=== PATIENT | male | born 1945 | race Caucasian/White ===

== ENCOUNTER 2020-05-14 06:57 | Outpatient (CLI) | payer MEDICARE, SELFPAY ==
[2020-05-14 07:09] LABS: Basophils Absolute Auto 0.05 K/mm3 (0.00-0.10); Eosinophils Absolute Auto 0.18 K/mm3 (0.02-0.50); Eosinophils Percent Auto 3.5 % (1.0-6.0); Hematocrit 49.7 % (37.0-46.0); Hemoglobin 16.7 g/dL (12.4-15.3); Immature Granulocyte Absolute 0.01 K/mm3 (0.00-0.00); Immature Granulocyte Percent A 0.2 % (0.0-0.0); Lymphocytes Absolute Auto 1.68 K/mm3 (1.10-4.50); Lymphocytes Percent Auto 32.6 % (18.0-42.0); Mean Corpuscular HGB Conc 33.6 g/dL (32.0-36.0); Mean Corpuscular Hemoglobin 32.2 pg (27.0-31.0); Mean Corpuscular Volume 95.8 fL (78.0-102.0); Mean Platelet Volume 9.4 fl (8.7-11.0); Monocytes Absolute Auto 0.54 K/mm3 (0.10-0.90); Monocytes Percent Auto 10.5 % (2.0-11.0); Neutrophils Absolute Auto 2.7 K/mm3 (1.7-7.2); Neutrophils Percent Auto 52.2 % (50.0-70.0); Platelet Count Result 132 K/mm3 (150-420); Red Blood Count 5.19 M/mm3 (4.70-6.10); Red Cell Distribution Width 13.4 % (11.6-14.4); White Blood Count 5.2 K/mm3 (4.8-10.8)
[2020-05-14 07:10] LABS: Appearance Urine Clear (Clear); Bilirubin Urine Negative (Negative); Color Urine Yellow (Yellow); Glucose Urine UA Negative (Negative); Ketones Urine Negative (Negative); Leukocyte Esterase Ur Negative (Negative); Nitrate Urine Negative (Negative); Protein Urine Trace (Negative)
[2020-05-14 07:15] LABS: Add Urine Microscopic? YES; Bacteria Urine None seen /hpf; Blood Urine Trace-Intact (Negative); RBC Urine 0-2 /hpf (0-2); WBC Urine 0-3 /hpf (0-3)
[2020-05-14 07:26] LABS: Hemoglobin A1C 5.3 % (<5.7)
[2020-05-14 07:40] LABS: BNP 283 pg/mL (0-100); Creatinine Urine 93.34 mg/dL (40-278)
[2020-05-14 07:41] LABS: Microalbumin Urine Random 145.7 mg/L
[2020-05-14 08:31] LABS: Alanine Aminotransferase 21 U/L (16-63); Albumin Level 3.9 g/dL (3.4-5.0); Alkaline Phosphatase 80 U/L (46-116); Anion Gap 12.3 mmol/L (7-16); Aspartate Amino Transferase 17 U/L (15-37); Bilirubin,Total 1.1 mg/dL (0.00-1.00); Blood Urea Nitrogen 19 mg/dL (7-18); Calcium 8.9 mg/dL (8.5-10.1); Carbon Dioxide 29 mmol/L (21-32); Chloride 103 mmol/L (98-108); Cholesterol 153 mg/dL (0-200); Creatine Kinase 71 U/L (39-308); Estimated Glomerular Filt Rate 58; Free T3 2.93 pg/mL (2.18-3.98); Free T4 Free Thyroxine 1.06 ng/dL (0.76-1.46); Glucose 98 mg/dL (70-99); HDL Direct 65 mg/dL (40-60); LDL Cholesterol Calculated 81 mg/dL (<130); Osmolality Calculated 292 mOsm/kg (285-295); Potassium 4.3 mmol/L (3.5-5.1); Sodium 140 mmol/L (136-145); Thyroid Stimulating Hormone 1.79 uIU/mL (0.36-3.74); Total Protein 6.8 g/dL (6.4-8.2); Triglycerides 37 mg/dL (0-150)
== END 2020-05-14 06:58 | disposition home or self-care (01) ==
LOC: CHSLAB 07:00
PROVIDERS: PCP Internal Medicine; Visit Provider Internal Medicine
DX: E78.2 Mixed hyperlipidemia (principal); I50.1 Left ventricular failure, unspecified; R73.01 Impaired fasting glucose; I10 Essential (primary) hypertension; E03.4 Atrophy of thyroid (acquired); D69.6 Thrombocytopenia, unspecified
CPT/HCPCS: 36415; 80053; 80061; 81001; 82043; 82550; 83036; 83880; 84439; 84443; 84481; 85025

== ENCOUNTER 2020-07-04 08:08 | Outpatient (CLI) | payer MEDICARE, SELFPAY ==
--- NOTE | ~2020-07-04 | US_ITS ---
EXAMINATION: US aorta [facility] DATE: 07/04/2020 12:37 CDT INDICATION: Abdominal aortic aneurysm screening TECHNIQUE: Grayscale, color Doppler, and pulsed Doppler images of the aorta and common iliac arteries were obtained. COMPARISON: Hypertension. High cholesterol. Smoking history. History of thoracic aortic aneurysm. FINDINGS: The proximal aorta measures 2.3 cm greatest sagittal dimension. The mid aorta measures 2.2 cm greates t sagittal dimension. The distal aorta measures 2.3 cm greatest sagittal dimension. The right common internal iliac artery measures 1.4 cm. The left common iliac artery measures 1.4 cm. IMPRESSION: 1. Atherosclerosis of the aorta without evidence for aneurysm. Reviewed, dictated and finalized at location A.
== END 2020-07-04 08:09 | disposition home or self-care (01) ==
LOC: CHSIMG 08:09
PROVIDERS: PCP Internal Medicine; Visit Provider Internal Medicine Cardiovascular Disease
DX: Z13.6 Encounter for screening for cardiovascular disorders (principal)
CPT/HCPCS: 76706

== ENCOUNTER 2020-07-13 18:28 | Emergency (ER) | payer MEDICARE, SELFPAY ==
--- NOTE | ~2020-07-13 | XR_ITS ---
EXAMINATION: XR chest 1V portable DATE: 07/13/2020 19:02 INDICATION: Chest pain. TECHNIQUE: A single frontal view of the chest was obtained. COMPARISON: Chest 2 views 09/13/2017, chest CT 10/30/2019 FINDINGS: There is no pneumonia, pleural effusion, or pneumothorax. Cardiomegaly is noted. There are changes of heart valve replacements. There is a closure device at atrial appendage. IMPRESSION: 1. Cardiomegaly. Reviewed, dictated and finalized at location A. IMPRESSION: 1. Cardiomegaly.
--- NOTE | ~2020-07-13 | CT_ITS ---
EXAMINATION: Geoff Negrete MD DATE: 07/13/2020 20:27 INDICATION: Chest and back pain. TECHNIQUE: Computed tomographic angiography (CTA) of the chest, abdomen, and pelvis was performed wit hout and with 100 mL Omnipaque-350 intravenous contrast. Automated exposure control and iterative rec onstruction technique were employed. The dose-length product was 2078.32 mGy-cm. Maximum intensity pr ojection 3D-reconstructions of the aorta and other arteries were constructed by the technologist on a separate workstation. COMPARISON: Chest CT 10/30/2019, CT abdomen and pelvis 08/06/2009 FINDINGS: CHEST CTA: There is mild atelectasis bilaterally. There are trace pleural effusions. Cardiomegaly is noted. Ther e are coronary artery calcifications. There are changes of aortic valve, mitral valve, and tricuspid valve replacements. There is a 5.9 cm aneurysm of ascending aorta. There is a dissection of ascending and descending aorta. There is a moderate volume of hemopericardium. There is leakage of contrast in to the pericardial effusion. The dissection is fenestrated, and there is contrast opacification of th e false and true lumens. The dissection extends into the brachiocephalic trunk. There is moderate tho racic spondylosis. ABDOMEN AND PELVIS CTA: The liver, gallbladder, spleen, pancreas, and adrenal glands are normal. There is cortical thinning o f the kidneys. There is a 6 mm cyst in left kidney. There are no dilated loops of bowel. The appendix is normal. There are no pathologically enlarged lymph nodes. There is no free intraperitoneal fluid. There are changes of left inguinal hernia repair. There are supraumbilical ventral hernias containin g fat with fat stranding, consistent with inflammation versus scarring. The aortic dissection continu es through the abdominal aorta to the right common iliac artery. There is severe lumbar spondylosis. IMPRESSION: 1. 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 I called this result to Dr. Negrete at 20:39. Reviewed, dictated and finalized at location A. IMPRESSION: 1. 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 I called this result to Dr. Negrete at 20:39.
--- NOTE | 2020-07-13 18:29 | ECG_ITS ---
Measurements Intervals [place] Rate: 70 P: [place]: 0 QRS: -60 QRSD: 155 T: 107 QT: 438 QTc: 473 Interpretive Statements ATRIAL FIBRILLATION FREQUENT VENTRICULAR PREMATURE COMPLEXES LEFT AXIS DEVIATION LEFT BUNDLE BRANCH BLOCK BASELINE ARTIFACT- I, II, III, AVL, V4-V6 ABNORMAL ECG Electronically Signed On 07-15-2020 8:18:11 CDT by Wayne Lozada D.O.
[2020-07-13 18:32] VITALS: BP 150/116; PULSE 69; RESP 20; O2SAT 97
[2020-07-13 18:45] VITALS: BP 139/85; PULSE 67; RESP 20; O2SAT 95
[2020-07-13] MEDS: MORPHINE SULFATE (*CRX) 2 MG/ML INJ IV PUSH ×2 (18:49→20:56)
[2020-07-13] MEDS: ONDANSETRON INJ 4 MG/2 ML VIAL IV PUSH (18:49)
--- NOTE | 2020-07-13 18:51 | ED.CHESTPAIN ---
HPI - Chest Pain General Chief Complaint: Chest Pain Stated Complaint: chest pain Time Seen by Provider: 07/13/20 18:29 Source: patient Mode of arrival: ambulatory Limitations: no limitations History of Present Illness HPI narrative: 74-year-old man with history of aortic valve disease, AST, and atrial appendage procedure, atrial fibrillation coronary artery disease comes in today complaining of chest pain and his upper chest which is like squeezing and pain going across the shoulders and in his upper back. Patient states that it made him feel nauseous, sweaty and short of breath. It has been going on for the few days but got much worse this evening. He has had no vomiting, syncope, abdominal pain. he states that his last echocardiogram (within the last 2 weeks) showed that he had a thoracic aneurysm measuring 4.6 cm. MD complaint: chest pain Pertinent past history: coronary artery disease, prior MD, [employer] and known aortic aneurysm Onset (ago): day(s) (2) Timing of current episode: episodic Prior episodes: No Onset: during rest Pain location: substernal Pain radiation: back, neck, left shoulder and right shoulder Severity: severe Quality: heaviness and sharp Relieving factors: nothing Exacerbating factors: nothing Associated symptoms: nausea, diaphoresis, dyspnea and palpitations Treatment prior to arrival: none Risk Factors Coronary artery disease risk factors: smoking history, hyperlipidemia and hypertension Thoracic aortic dissection risk factors: history of thoracic aortic aneurysm and longstanding hypertension Pulmonary embolism risk factors: history of deep vein thrombosis Related Data Home Medications Medication Instructions Recorded Confirmed apixaban [Eliquis] 5 mg PO BID 07/13/20 07/13/20 aspirin [Aspirin Low Dose] 81 mg PO DAILY 07/13/20 07/13/20 calcium carb-mag oxide-vit D3 1 tablet PO DAILY 07/13/20 07/13/20 [Calcium Magnesium + D] carvedilol 6.25 mg PO BID 07/13/20 07/13/20 furosemide 20 mg PO DAILY 07/13/20 07/13/20 losartan 50 mg PO BID 07/13/20 07/13/20 potassium chloride 10 meq PO TID 07/13/20 07/13/20 pravastatin 20 mg PO DAILY 07/13/20 07/13/20 Allergies Allergy/AdvReac Type Severity Reaction Status Date / Time NADIEN Inhibitors Allergy Unknown Unknown Verified 07/13/20 18:40 No Known Allergies Verified 09/16/09 20:03 Review of Systems Constitutional: Constitutional: Denies chills and Denies fever(s) Eyes: Eyes: Denies change in vision and Denies photophobia ENT: Denies dysphagia, Denies nasal congestion and Denies sore throat Cardiovascular: Cardiovascular: Reports chest pain, Denies rapid heart rate and Reports radiating jaw, neck or arm pain Respiratory: Respiratory: Denies cough, Reports dyspnea and Denies wheezing Gastrointestinal: Gastrointestinal: Denies abdominal pain, Reports nausea and Denies vomiting Genitourinary: Genitourinary: Denies dysuria and Denies urinary frequency Musculoskeletal: Musculoskeletal: Reports back pain, Denies arthralgias and Denies joint swelling Integumentary/Breasts: Skin/Breast: Denies pruritus, Denies erythema and Denies rash Neurologic: Denies vertigo, Denies dizziness and Denies syncope Psychiatric: Psychiatric: Denies anxiety and Denies depression Endocrine: Endocrine: Denies excessive sweating and Denies polyuria Hematologic/Lymphatic: Hematologic/Lymphatic: Reports easy bruising (on AC and ASA) Allergic/Immunologic: Allergic/Immunologic: Denies lip swelling and Denies tongue swelling PMFSH Past Medical History Medical History ASD (atrial septal defect) Atrial fibrillation DVT (deep venous thrombosis) Dyslipidemia Hypertension Obstructive sleep apnea Systolic congestive heart failure Surgical History Surgical History Aortic valve replaced Presence of stent in coronary artery Family History Family History (Updated
[2020-07-13 18:52] LABS: Hematocrit 46.7 % (37.0-46.0); Hemoglobin 15.3 g/dL (12.4-15.3); Mean Corpuscular HGB Conc 32.8 g/dL (32.0-36.0); Mean Corpuscular Hemoglobin 31.4 pg (27.0-31.0); Mean Corpuscular Volume 95.7 fL (78.0-102.0); Platelet Count Result 115 K/mm3 (150-420); Red Blood Count 4.88 M/mm3 (4.70-6.10); Red Cell Distribution Width 13.1 % (11.6-14.4); White Blood Count 6.5 K/mm3 (4.8-10.8)
[2020-07-13 19:04] LABS: INR 1.2; Partial Thromboplastin Time 30.5 SEC (22.3-31.6); Prothrombin Time 12.4 Seconds (9.64-11.0)
[2020-07-13 19:06] LABS: Albumin Level 3.4 g/dL (3.4-5.0); Alkaline Phosphatase 77 U/L (46-116); Anion Gap 7 mmol/L (8-16); Aspartate Amino Transferase 11 U/L (15-37); Bilirubin,Total 1.8 mg/dL (0.00-1.00); Blood Urea Nitrogen 23 mg/dL (7-18); Calcium 8.4 mg/dL (8.5-10.1); Carbon Dioxide 27 mmol/L (21-32); Chloride 104 mmol/L (98-108); Estimated CRCL calculation 55 ml/min; Estimated Glomerular Filt Rate 52; Glucose 120 mg/dL (70-99); Osmolality Calculated 290 mOsm/kg (285-295); Potassium 4.1 mmol/L (3.5-5.1); Sodium 138 mmol/L (136-145); Total Protein 6.4 g/dL (6.4-8.2)
[2020-07-13 19:07] LABS: Alanine Aminotransferase < 6 U/L (16-63)
[2020-07-13 19:11] LABS: Troponin I 0.06 ng/mL (0.00-0.056)
[2020-07-13 19:12] LABS: Band Neutrophils Percent 0 % (0-6); D Dimer 2.12 mg/L (0.19-0.50); Lymphocytes Absolute Manual 0.71 K/mm3 (1.1-4.5); Lymphocytes Percent Manual 11 % (18-44); Neutrophils Absolute Manual 4.48 K/mm3 (1.3-6.7); Neutrophils Percent Manual 69 % (46-73); Total Cells Counted 100
[2020-07-13 19:13] LABS: Basophils Percent Manual 0 % (0-1); Eosinophils Absolute Manual 0.26 K/mm3 (0.02-0.5); Eosinophils Percent Manual 4 % (1-6); Monocytes Absolute Manual 1.04 K/mm3 (0.1-0.90); Monocytes Percent Manual 16 % (3-9); Platelet Estimate Decreased (Adequate)
[2020-07-13 19:14] LABS: BNP 321 pg/mL (0-100)
[2020-07-13 19:45] VITALS: PULSE 65
--- NOTE | 2020-07-13 19:54 | PC.NURSE ---
[address] after being called twice
[2020-07-13] MEDS: SODIUM CHLORIDE 0.9% IV 1,000 ML 999 ML IV CONT (20:56)
[2020-07-13] MEDS: LABETALOL HCL INJ 100 MG/20 ML VIAL 10 MG IV PUSH (21:05)
[2020-07-13 21:14] LABS: Add Urine Microscopic? YES; Appearance Urine Clear (Clear); Bilirubin Urine Negative (Negative); Blood Urine Negative (Negative); Color Urine Yellow (Yellow); Glucose Urine UA Negative (Negative); Ketones Urine Negative (Negative); Leukocyte Esterase Ur Negative LEU/UL (Negative); Nitrate Urine Negative (Negative); Protein Urine Trace (Negative)
[2020-07-13 21:18] LABS: RBC Urine None seen /hpf (0-2); Squamous Epithelial Cell Urine None seen /hpf (Few); WBC Urine None seen /hpf (0-3)
[2020-07-13 21:19] LABS: Bacteria Urine None seen /hpf; Mucus Urine None seen /lpf
--- NOTE | 2020-07-13 21:38 | PC.NURSE ---
Arch called 2054 arch arrived 2109 pt left with arch 2124 report given to Vimal WHITEHEAD at [facility] at 2107
== END 2020-07-13 21:25 | disposition short-term general hospital (02) ==
PROVIDERS: Emergency Provider Emergency Medicine; PCP Internal Medicine
DX: I71.1 Thoracic aortic aneurysm, ruptured (principal); R06.02 Shortness of breath; I48.91 Unspecified atrial fibrillation; Z86.718 Personal history of other venous thrombosis and embolism; E78.5 Hyperlipidemia, unspecified; I10 Essential (primary) hypertension; Z87.891 Personal history of nicotine dependence
CPT/HCPCS: 36415; 71045; 71275; 74174; 80053; 81001; 83880; 84484; 85025; 85055; 85380; 85610; 85730; 93005; 96361; 96374; 96375; 96376; 99285; J2270; J2405; J7030; Q9965

== ENCOUNTER 2020-07-27 09:54 | Emergency (ER) | payer MEDICARE, SELFPAY ==
--- NOTE | ~2020-07-27 | CT_ITS ---
EXAMINATION: CT abdomen pelvis w con EXAM DATE: 07/27/2020 11:13 INDICATION: Groin hematoma. TECHNIQUE: Spiral CT of the abdomen and pelvis was performed following intravenous injection of 100 m L Omnipaque 350. Axial, coronal and sagittal images were reviewed. The dose-length product (DLP) fo r this examination was 1004.82 mGy-cm. The exposure was tailored according to patient size (auto mA exposure control), and iterative reconstruction (ASIR) was used as additional dose reduction techniqu e. Comparison is made to prior examination from 07/13/2020. FINDINGS: Again there is aortic dissection, determined to be type A on a CT angiogram 07/13/2020. Ther e is no rupture. There is lobulated fluid collection in the right groin likely post catheterization m easuring about 8 cm. There is no enhancement within this to suggest pseudoaneurysm or active extravas ation. Aortic root is aneurysmal, the ascending aorta was not imaged. The liver, spleen, adrenal glands and pancreas are unremarkable. Gallbladder is unremarkable. No bi liary obstruction. Portal and splenic veins are patent. Kidneys enhance symmetrically. There is no hydronephrosis. The prostate is unremarkable. Small amount of free pelvic fluid. The bladder is u nremarkable. There is no retroperitoneal or pelvic lymphadenopathy. There is moderate scattered ar teriosclerotic disease. The appendix is not positively visualized. There is no pericecal inflammatory change to suggest appe ndicitis. Surgical changes from prior left inguinal hernia repair. There is a small supraumbilical he rnia, left of midline approximately 5 cm above the umbilicus with a nonobstructed small bowel loop in side. There is expected amount of colonic stool. No free intraperitoneal gas. There is cardiomeg serafin. Moderate bilateral pleural effusions, developed compared to 07/13, with adjacent segmental atele ctasis. Sternotomy wires with multiple cardiac valve replacements. There are no osteoblastic or oste olytic lesions identified. Mild to moderate lumbar dextroscoliosis. IMPRESSION: 1. Large right groin seroma without evidence of active extravasation or pseudoaneurysm. 2. Supraumbilical hernia, now containing nonobstructed small bowel. 3. Persistent Type A dissection without rupture. 4. Development of moderate bilateral pleural effusions, adjacent segmental atelectasis. Reviewed, dictated and finalized at location A. IMPRESSION: 1. Large right groin seroma without evidence of active extravasation or pseudo aneurysm. 2. Supraumbilical hernia, now containing nonobstructed small bowel. 3. Persistent Type A dissection without rupture. 4. Development of moderate bilateral pleural effusions, adjacent segmental ate lectasis.
[2020-07-27 10:00] VITALS: BP 183/120; PULSE 95; RESP 22; TEMP 36.1; O2SAT 95
--- NOTE | 2020-07-27 10:01 | ECG_ITS ---
Measurements Intervals [place] Rate: 98 P: [place]: 0 QRS: -9 QRSD: 164 T: 146 QT: 399 QTc: 511 Interpretive Statements ATRIAL FIBRILLATION FREQUENT VENTRICULAR PREMATURE COMPLEXES LEFT BUNDLE BRANCH BLOCK BASELINE WANDER- I, III, AVL, AVF, V1-V6 ABNORMAL ECG Electronically Signed On 07-29-2020 7:00:25 CDT by Wayne Lozada D.O.
[2020-07-27 10:23] LABS: Hematocrit 37.3 % (37.0-46.0); Hemoglobin 12.2 g/dL (12.4-15.3); Mean Corpuscular HGB Conc 32.7 g/dL (32.0-36.0); Mean Corpuscular Volume 94.9 fL (78.0-102.0); Mean Platelet Volume 8.9 fl (8.7-11.0); Platelet Count Result 323 K/mm3 (150-420); Red Blood Count 3.93 M/mm3 (4.70-6.10); Red Cell Distribution Width 14.4 % (11.6-14.4)
[2020-07-27 10:36] LABS: INR 1.1; Partial Thromboplastin Time 27.5 SEC (22.3-31.6); Prothrombin Time 11.8 Seconds (9.64-11.0)
[2020-07-27 10:38] LABS: BNP 971 pg/mL (0-100)
[2020-07-27 10:42] LABS: Alanine Aminotransferase 38 U/L (16-63); Albumin Level 2.5 g/dL (3.4-5.0); Alkaline Phosphatase 129 U/L (46-116); Anion Gap 6 mmol/L (8-16); Aspartate Amino Transferase 17 U/L (15-37); Bilirubin,Total 0.8 mg/dL (0.00-1.00); Blood Urea Nitrogen 12 mg/dL (7-18); Calcium 8.6 mg/dL (8.5-10.1); Carbon Dioxide 28 mmol/L (21-32); Chloride 100 mmol/L (98-108); Estimated Glomerular Filt Rate > 60; Glucose 123 mg/dL (70-99); Osmolality Calculated 278 mOsm/kg (285-295); Potassium 3.6 mmol/L (3.5-5.1); Sodium 134 mmol/L (136-145); Total Protein 6.7 g/dL (6.4-8.2)
[2020-07-27 10:42] LABS: CRP 7.4 mg/dL (0.0-0.9)
[2020-07-27 10:43] LABS: Troponin I 0.09 ng/mL (0.00-0.056)
[2020-07-27 10:45] VITALS: BP 157/96; PULSE 90; RESP 20; O2SAT 97
[2020-07-27 10:45] LABS: Lactic Acid Reflex 1.9 mmol/L (0.4-2.0)
--- NOTE | 2020-07-27 11:21 | PC.NURSE ---
Report given to CHARLEY Mcdowell
--- NOTE | 2020-07-27 11:43 | PC.NURSE ---
CALL PLACED TO DR LAL [phone] FOR BED PLACEMENT AT [facility]
[2020-07-27 11:48] VITALS: BP 151/94; PULSE 104; RESP 16; O2SAT 99
--- NOTE | 2020-07-27 11:50 | ED.GENADULT ---
HPI - General Adult General Chief complaint: Unspecified Stated complaint: lump above right leg Source: patient Mode of arrival: ambulatory Limitations: no limitations History of Present Illness HPI narrative: this is a 74-year-old gentleman presents with some right groin swelling, had any firm area on the right groin area with a recent surgical repair of a ruptured aortic aneurysm in the middle of June, currently stable blood pressure 151/94, is afebrile. The patient's symptoms started earlier this morning and they were concerned and presented to the emergency department. They call the surgical hot line at [facility] where he previously had surgery performed in [place] and was advised to come to a nearest emergency department. Currently the patient denies any chest pain, there is no shortness of breath not eliciting any pain or discomfort in the right groin area although there is a firm mass approximately the size of a baseball is mildly tender with palpation. Patient has a significant past surgical history with coronary artery disease status post PCI, has a history of CHF with an ejection fraction of 35 to 40% tele with history of mitral annuloplasty and tricuspid annuloplasty back in 2015. Onset (ago): hour(s) Location: right ( right groin area) Radiation: non-radiation Associated symptoms: denies other symptoms Related Data Home Medications Medication Instructions Recorded Confirmed aspirin [Aspirin Low Dose] 81 mg PO DAILY 07/13/20 07/27/20 calcium carb-mag oxide-vit D3 1 tablet PO DAILY 07/13/20 07/27/20 [Calcium Magnesium + D] furosemide 20 mg PO DAILY 07/13/20 07/27/20 losartan 25 mg PO DAILY 07/13/20 07/27/20 potassium chloride 10 meq PO TID 07/13/20 07/27/20 pravastatin 20 mg PO DAILY 07/13/20 07/27/20 amoxicillin-pot clavulanate 1 tablet PO BID 07/27/20 07/27/20 metoprolol succinate 50 mg PO DAILY 07/27/20 07/27/20 Allergies Allergy/AdvReac Type Severity Reaction Status Date / Time NADINE Inhibitors Allergy Unknown Unknown Verified 07/13/20 18:40 No Known Allergies Verified 09/16/09 20:03 Review of Systems Review of Systems: All systems reviewed & are unremarkable except as noted in HPI and below PMFSH Past Medical History Medical History ASD (atrial septal defect) Atrial fibrillation DVT (deep venous thrombosis) Dyslipidemia Hypertension Obstructive sleep apnea Systolic congestive heart failure Surgical History Surgical History Aortic valve replaced Presence of stent in coronary artery Family History Family History Father Hypertension Mother Patient's mother is in good health Social History Social History Smoking status: Former smoker Substance use: never Gender identity (if verbalized by the patient): Male Exam Const: General: no acute distress and alert Orientation/consciousness: patient oriented x3 HENMT: Head: normal to inspection Eyes: Conjunctivae: conjunctivae normal Pupils: Equal, round and reactive pupils present EOM: EOMs intact bilaterally Neck: Neck: normal visual inspection, no lymphadenopathy and no meningeal signs Chest: Chest palpation & inspection: normal inspection of the chest Other: Midline surgical scar Resp: Effort & Inspection: normal respiratory effort Auscultation: clear to auscultation bilaterally Cardio: Rate: tachycardic Rhythm: regular rhythm GI: GI Palp: Yes Tenderness to palpation present (GI) Percussion: Yes normal to percussion : Testes: Testes normal Skin: General skin exam: normal color Rashes: no rashes Other: firm mildly tender mass right groin area approximately 6 to 7 cm in diameter Neuro: General: patient oriented x3, moves all extremities and no meningeal signs Extrem: General: spring
[2020-07-27 13:01] VITALS: BP 143/97; PULSE 99; O2SAT 100
--- NOTE | 2020-07-27 13:01 | PC.NURSE ---
ADDITIONAL CALL PLACED TO [facility], NO BED AVAILABLE YET. PATIENT UPDATED OF WAIT TIMES. CONDITION STABLE AT THIS TIME.
[2020-07-27 14:05] VITALS: PULSE 90; O2SAT 99
== END 2020-07-27 14:45 | disposition short-term general hospital (02) ==
PROVIDERS: Emergency Provider Emergency Medicine; PCP Internal Medicine
DX: I72.8 Aneurysm of other specified arteries (principal); Z98.890 Other specified postprocedural states; I48.91 Unspecified atrial fibrillation; Z86.718 Personal history of other venous thrombosis and embolism; E78.5 Hyperlipidemia, unspecified; I10 Essential (primary) hypertension
CPT/HCPCS: 36415; 74177; 80053; 83605; 83880; 84484; 85027; 85610; 85730; 86140; 93005; 99285; Q9965

== ENCOUNTER 2020-09-11 07:04 | Outpatient (CLI) | payer MEDICARE, SELFPAY ==
[2020-09-11 07:28] LABS: Basophils Absolute Auto 0.03 K/mm3 (0.00-0.10); Basophils Percent Auto 0.6 % (0.0-1.0); Eosinophils Absolute Auto 0.16 K/mm3 (0.02-0.50); Eosinophils Percent Auto 3.5 % (1.0-6.0); Hematocrit 41.6 % (37.0-46.0); Immature Granulocyte Absolute 0.01 K/mm3 (0.00-0.00); Immature Granulocyte Percent A 0.2 % (0.0-0.0); Lymphocytes Absolute Auto 1.33 K/mm3 (1.10-4.50); Lymphocytes Percent Auto 28.8 % (18.0-42.0); Mean Corpuscular HGB Conc 31.3 g/dL (32.0-36.0); Mean Corpuscular Hemoglobin 29.5 pg (27.0-31.0); Mean Corpuscular Volume 94.3 fL (78.0-102.0); Mean Platelet Volume 9.3 fl (8.7-11.0); Monocytes Absolute Auto 0.63 K/mm3 (0.10-0.90); Monocytes Percent Auto 13.6 % (2.0-11.0); Neutrophils Absolute Auto 2.5 K/mm3 (1.7-7.2); Neutrophils Percent Auto 53.3 % (50.0-70.0); Platelet Count Result 186 K/mm3 (150-420); Red Blood Count 4.41 M/mm3 (4.70-6.10); Red Cell Distribution Width 14.3 % (11.6-14.4); White Blood Count 4.6 K/mm3 (4.8-10.8)
[2020-09-11 07:49] LABS: BNP 1170 pg/mL (0-100)
[2020-09-11 08:26] LABS: Alanine Aminotransferase 19 U/L (16-63); Albumin Level 3.6 g/dL (3.4-5.0); Alkaline Phosphatase 111 U/L (46-116); Anion Gap 8 mmol/L (8-16); Aspartate Amino Transferase 13 U/L (15-37); Bilirubin,Total 0.9 mg/dL (0.00-1.00); Blood Urea Nitrogen 19 mg/dL (7-18); Calcium 9.1 mg/dL (8.5-10.1); Carbon Dioxide 27 mmol/L (21-32); Chloride 103 mmol/L (98-108); Estimated Glomerular Filt Rate > 60; Ferritin 76 ng/mL (26-388); Glucose 106 mg/dL (70-99); Iron 49 ug/dL (65-175); Osmolality Calculated 288 mOsm/kg (285-295); Percent Iron Saturation 17 % (12-57); Potassium 4.6 mmol/L (3.5-5.1); Sodium 138 mmol/L (136-145); Total Protein 7.1 g/dL (6.4-8.2)
== END 2020-09-11 07:05 | disposition home or self-care (01) ==
LOC: CHSLAB 07:05
PROVIDERS: PCP Internal Medicine; Visit Provider Internal Medicine
DX: D50.9 Iron deficiency anemia, unspecified (principal); I50.9 Heart failure, unspecified
CPT/HCPCS: 36415; 80053; 82728; 83540; 83550; 83880; 85025

== ENCOUNTER 2021-04-14 06:59 | Outpatient (CLI) | payer MEDICARE, SELFPAY ==
--- NOTE | ~2021-04-14 | CT_ITS ---
EXAMINATION: CT abdomen w con INDICATION: Ventral/incisional hernia TECHNIQUE: Computed tomographic images of the abdomen were obtained after the administration of 100 c c of Omnipaque 350 intravenous contrast. The dose-length product (DLP) was 891.15 mGy-cm. Automated e xposure control and iterative reconstruction technique were employed. COMPARISON: 07/27/2020, 07/13/2020 FINDINGS: The lung bases are clear. The heart size is normal. There is a chronic partially imaged aor tic dissection extending from the distal thoracic aorta to the level of the aortic bifurcation of the abdomen. The liver, spleen, pancreas, gallbladder, and adrenal glands are normal. The right kidney i s unremarkable. There is a 1.3 cm cyst of the left kidney upper pole. There is a 6 mm mass of the lef t kidney upper pole on image 56 which appears to enhance when compared to prior examinations obtained at different phases of contrast administration. No free intraperitoneal gas is identified. There are no pathologically enlarged abdominal lymph nodes. No dilated loops of bowel are evident. There is mo derate lumbar spondylosis. There are multiple midline ventral hernias. The largest is located approximately 5 cm cranial to the umbilicus and contains short segment of nonobstructed small bowel. There are smaller hernias located cranial and caudal to this larger hernia which contain the anterior pacheco of short segment of nonobst ructed small bowel. There is a fat-containing hernia to the left of midline located approximately 5 c m above the umbilicus. IMPRESSION: 1. Multiple ventral hernias located cranial to the umbilicus which contain fat and nonobstructed smal l bowel. 2. 6 mm left kidney mass, too small to characterize but possibly tiny neoplasm. Follow-up MRI or CT i n 6-12 months without and with contrast is recommended. 3. Chronic aortic dissection. Reviewed, dictated and finalized at location A. IMPRESSION: 1. Multiple ventral hernias located cranial to the umbilicus which contain fat and nonobstructed small bowel. 2. 6 mm left kidney mass, too small to characterize but possibly tiny neoplasm. Follow-up MRI or CT in 6-12 months without and with contrast is recommended. 3. Chronic aortic dissection.
[2021-04-14 07:27] LABS: Estimated Glomerular Filt Rate > 60
== END 2021-04-14 07:00 | disposition home or self-care (01) ==
LOC: CHSIMG 07:00
PROVIDERS: PCP Internal Medicine; Visit Provider Internal Medicine
DX: K43.9 Ventral hernia without obstruction or gangrene (principal)
CPT/HCPCS: 74160; Q9967

== ENCOUNTER 2021-06-12 11:18 | Outpatient (CLI) | payer MEDICARE, SELFPAY ==
--- NOTE | ~2021-06-12 | XR_ITS ---
XR chest 2V 06/12/2021 12:12 Indication: Preoperative testing. History of thoracic aortic aneurysm. Procedure: 2 views of the chest Comparison: Comparison to multiple prior studies sequentially, with oldest reviewed study dated 12/2016. Findings: Status post median sternotomy. There are prosthetic heart valves. There is thoracic aortic ectasia. Heart size normal. No focal air space disease, pulmonary edema, pleural effusion or suspecte d pneumothorax. Impression: 1: No acute cardiopulmonary disease. Reviewed, dictated and finalized at location A. Impression: 1: No acute cardiopulmonary disease.
[2021-06-12 11:36] LABS: Basophils Absolute Auto 0.05 K/mm3 (0.00-0.10); Basophils Percent Auto 1.1 % (0.0-1.0); Eosinophils Absolute Auto 0.14 K/mm3 (0.02-0.50); Eosinophils Percent Auto 3.2 % (1.0-6.0); Hematocrit 48.1 % (37.0-46.0); Hemoglobin 15.8 g/dL (12.4-15.3); Immature Granulocyte Absolute 0.01 K/mm3 (0.00-0.00); Immature Granulocyte Percent A 0.2 % (0.0-0.0); Lymphocytes Absolute Auto 1.26 K/mm3 (1.10-4.50); Lymphocytes Percent Auto 28.4 % (18.0-42.0); Mean Corpuscular HGB Conc 32.8 g/dL (32.0-36.0); Mean Corpuscular Hemoglobin 31.5 pg (27.0-31.0); Monocytes Absolute Auto 0.59 K/mm3 (0.10-0.90); Monocytes Percent Auto 13.3 % (2.0-11.0); Neutrophils Absolute Auto 2.4 K/mm3 (1.7-7.2); Neutrophils Percent Auto 53.8 % (50.0-70.0); Platelet Count Result 142 K/mm3 (150-420); Red Blood Count 5.01 M/mm3 (4.70-6.10); Red Cell Distribution Width 13.2 % (11.6-14.4); White Blood Count 4.4 K/mm3 (4.8-10.8)
--- NOTE | 2021-06-12 12:02 | ECG_ITS ---
Measurements Intervals [place] Rate: 64 P: [place]: 0 QRS: 125 QRSD: 170 T: 264 QT: 450 QTc: 466 Interpretive Statements ATRIAL FIBRILLATION RIGHT AXIS DEVIATION LEFT BUNDLE BRANCH BLOCK CONSIDER HIGH LATERAL INFARCT, AGE INDETERMINATE BASELINE ARTIFACT- I, II, III, V5 ABNORMAL ECG Electronically Signed On 06-12-2021 12:17:24 CDT by Wayne Lozada D.O.
[2021-06-12 12:49] LABS: Anion Gap 12 mmol/L (8-16); Blood Urea Nitrogen 20 mg/dL (7-18); Calcium 9.1 mg/dL (8.5-10.1); Carbon Dioxide 27 mmol/L (21-32); Chloride 104 mmol/L (98-108); Estimated Glomerular Filt Rate > 60; Glucose 95 mg/dL (70-99); Osmolality Calculated 298 mOsm/kg (285-295); Potassium 4.7 mmol/L (3.5-5.1); Sodium 143 mmol/L (136-145)
== END 2021-06-12 11:19 | disposition home or self-care (01) ==
PROVIDERS: PCP Internal Medicine
DX: Z01.818 Encounter for other preprocedural examination (principal); K43.2 Incisional hernia without obstruction or gangrene
CPT/HCPCS: 36415; 71046; 80048; 85025; 93005

== ENCOUNTER 2021-06-30 09:59 | Outpatient (CLI) | payer MEDICARE, SELFPAY ==
[2021-06-30 11:05] LABS: SARS-CoV-2 RNA PCR Negative (Negative)
== END 2021-06-30 10:00 | disposition home or self-care (01) ==
LOC: CHSLAB 10:02
PROVIDERS: PCP Internal Medicine; Visit Provider Family Medicine
DX: Z01.818 Encounter for other preprocedural examination (principal); Z20.822 Contact with and (suspected) exposure to COVID-19
CPT/HCPCS: C9803; U0003; U0005

== ENCOUNTER 2021-11-11 07:39 | Outpatient (CLI) | payer MEDICARE, SELFPAY ==
[2021-11-11 07:53] LABS: Appearance Urine Clear (Clear); Basophils Absolute Auto 0.05 K/mm3 (0.00-0.10); Basophils Percent Auto 0.9 % (0.0-1.0); Bilirubin Urine Negative (Negative); Color Urine Yellow (Yellow); Eosinophils Absolute Auto 0.17 K/mm3 (0.02-0.50); Eosinophils Percent Auto 2.9 % (1.0-6.0); Glucose Urine UA Negative (Negative); Hematocrit 48.7 % (37.0-46.0); Hemoglobin 16.1 g/dL (12.4-15.3); Immature Granulocyte Absolute 0.02 K/mm3 (0.00-0.00); Immature Granulocyte Percent A 0.3 % (0.0-0.0); Ketones Urine Negative (Negative); Leukocyte Esterase Ur Negative (Negative); Lymphocytes Absolute Auto 1.29 K/mm3 (1.10-4.50); Mean Corpuscular HGB Conc 33.1 g/dL (32.0-36.0); Mean Corpuscular Hemoglobin 31.6 pg (27.0-31.0); Mean Corpuscular Volume 95.7 fL (78.0-102.0); Mean Platelet Volume 8.9 fl (8.7-11.0); Monocytes Absolute Auto 0.66 K/mm3 (0.10-0.90); Monocytes Percent Auto 11.2 % (2.0-11.0); Neutrophils Absolute Auto 3.7 K/mm3 (1.7-7.2); Neutrophils Percent Auto 62.7 % (50.0-70.0); Nitrate Urine Negative (Negative); Platelet Count Result 152 K/mm3 (150-420); Protein Urine 1+ (Negative); Red Blood Count 5.09 M/mm3 (4.70-6.10); Red Cell Distribution Width 13.2 % (11.6-14.4); Urobilinogen Urine 0.2 mg/dL (0.2-1.0); White Blood Count 5.9 K/mm3 (4.8-10.8)
[2021-11-11 08:07] LABS: Add Urine Microscopic? YES; Bacteria Urine Trace /hpf; Blood Urine Trace-Intact (Negative); WBC Urine None seen /hpf (0-3)
[2021-11-11 08:08] LABS: Mucus Urine Moderate /lpf
[2021-11-11 08:18] LABS: Creatinine Urine 135.31 mg/dL (40-278)
[2021-11-11 08:21] LABS: MALB Creatinine Ratio 111.8 mg/g (0-30); Microalbumin Urine Random 151.4 mg/L
[2021-11-11 09:29] LABS: Alanine Aminotransferase 21 U/L (16-63); Albumin Level 3.8 g/dL (3.4-5.0); Alkaline Phosphatase 89 U/L (46-116); Anion Gap 7 mmol/L (8-16); Aspartate Amino Transferase 15 U/L (15-37); Bilirubin,Total 1.3 mg/dL (0.00-1.00); Blood Urea Nitrogen 20 mg/dL (7-18); Calcium 9.4 mg/dL (8.5-10.1); Carbon Dioxide 31 mmol/L (21-32); Chloride 104 mmol/L (98-108); Cholesterol 145 mg/dL (0-200); Estimated Glomerular Filt Rate > 60; Free T3 2.76 pg/mL (2.18-3.98); Free T4 Free Thyroxine 1.13 ng/dL (0.76-1.46); Glucose 97 mg/dL (70-99); HDL Direct 69 mg/dL (40-60); LDL Cholesterol Calculated 68 mg/dL (<130); NT Pro B Type Natriuretic Pept 2862 pg/mL (0-125); Osmolality Calculated 296 mOsm/kg (285-295); Potassium 4.4 mmol/L (3.5-5.1); Prostate Specific Antigen 1.5 ng/mL (< OR = 4.0); Sodium 142 mmol/L (136-145); Thyroid Stimulating Hormone 1.09 uIU/mL (0.36-3.74); Triglycerides 40 mg/dL (0-150)
[2021-11-18 13:00] LABS: Hepatitis C Signal to Cutoff 8.48 ratio (<1.00); Hepatitis C Virus Antibody Reactive (Nonreactive)
[2021-11-20 19:39] LABS: Hepatitis C Viral RNA PCR <15 IU/mL
== END 2021-11-11 07:40 | disposition home or self-care (01) ==
LOC: CHSLAB 07:40
PROVIDERS: PCP Internal Medicine; Visit Provider Internal Medicine
DX: E78.2 Mixed hyperlipidemia (principal); I10 Essential (primary) hypertension; I50.1 Left ventricular failure, unspecified; I48.19 Other persistent atrial fibrillation; R73.01 Impaired fasting glucose; Z12.5 Encounter for screening for malignant neoplasm of prostate
CPT/HCPCS: 36415; 80053; 80061; 81001; 82043; 83880; 84153; 84439; 84443; 84481; 85025; 86803; 87522; G0103

== ENCOUNTER 2023-04-29 07:21 | Outpatient (CLI) | payer MEDICARE, SELFPAY ==
[2023-04-29 07:46] LABS: Basophils Absolute Auto 0.04 K/mm3 (0.00-0.10); Basophils Percent Auto 0.8 % (0.0-1.0); Eosinophils Absolute Auto 0.06 K/mm3 (0.02-0.50); Eosinophils Percent Auto 1.3 % (1.0-6.0); Hemoglobin 15.2 g/dL (12.4-15.3); Immature Granulocyte Absolute 0.02 K/mm3 (0.00-0.00); Immature Granulocyte Percent A 0.4 % (0.0-0.0); Lymphocytes Absolute Auto 1.04 K/mm3 (1.10-4.50); Lymphocytes Percent Auto 21.9 % (18.0-42.0); Mean Corpuscular Hemoglobin 31.7 pg (27.0-31.0); Mean Platelet Volume 9.2 fl (8.7-11.0); Monocytes Absolute Auto 0.47 K/mm3 (0.10-0.90); Monocytes Percent Auto 9.9 % (2.0-11.0); Neutrophils Absolute Auto 3.1 K/mm3 (1.7-7.2); Neutrophils Percent Auto 65.7 % (50.0-70.0); Platelet Count Result 142 K/mm3 (150-420); Red Blood Count 4.79 M/mm3 (4.70-6.10); Red Cell Distribution Width 13.1 % (11.6-14.4); White Blood Count 4.7 K/mm3 (4.8-10.8)
[2023-04-29 07:48] LABS: Appearance Urine Clear (Clear); Bilirubin Urine Negative (Negative); Blood Urine 1+ (Negative); Color Urine Yellow (Yellow); Glucose Urine UA Negative (Negative); Ketones Urine Negative (Negative); Leukocyte Esterase Ur Negative (Negative); Nitrate Urine Negative (Negative); Protein Urine Trace (Negative); Specific Grav Ur 1.015 (1.010-1.020); Urobilinogen Urine 0.2 mg/dL (0.2-1.0); pH Urine 6.5 (5.0-8.0)
[2023-04-29 08:00] LABS: Add Urine Microscopic? YES; Amorphous Sediment Urine Moderate; Bacteria Urine None seen /hpf; Squamous Epithelial Cell Urine Rare /hpf (Few); WBC Urine 0-3 /hpf (0-3)
[2023-04-29 08:13] LABS: Hemoglobin A1C 5.5 % (<5.7)
[2023-04-29 08:56] LABS: Alanine Aminotransferase 23 U/L (16-63); Albumin Level 3.7 g/dL (3.4-5.0); Alkaline Phosphatase 88 U/L (46-116); Anion Gap 7 mmol/L (8-16); Aspartate Amino Transferase 28 U/L (15-37); Bilirubin,Total 1.1 mg/dL (0.00-1.00); Blood Urea Nitrogen 24 mg/dL (7-18); Calcium 9.3 mg/dL (8.5-10.1); Carbon Dioxide 30 mmol/L (21-32); Chloride 104 mmol/L (98-108); Cholesterol 147 mg/dL (0-200); Estimated Glomerular Filt Rate > 60; Free T3 2.91 pg/mL (2.18-3.98); Glucose 113 mg/dL (70-99); HDL Direct 63 mg/dL (40-60); LDL Cholesterol Calculated 79 mg/dL (<130); NT Pro B Type Natriuretic Pept 1879 pg/mL (0-450); Osmolality Calculated 297 mOsm/kg (285-295); Potassium 5.1 mmol/L (3.5-5.1); Sodium 141 mmol/L (136-145); Thyroid Stimulating Hormone 1.05 uIU/mL (0.36-3.74); Total Protein 7.3 g/dL (6.4-8.2); Triglycerides 25 mg/dL (0-150)
== END 2023-04-29 07:22 | disposition home or self-care (01) ==
LOC: CHSLAB 07:27
PROVIDERS: PCP Internal Medicine; Visit Provider Internal Medicine
DX: I50.1 Left ventricular failure, unspecified (principal); I10 Essential (primary) hypertension; E78.2 Mixed hyperlipidemia; R73.01 Impaired fasting glucose
CPT/HCPCS: 36415; 80053; 80061; 81001; 83036; 83880; 84439; 84443; 84481; 85025

== ENCOUNTER 2023-05-14 07:18 | Outpatient (CLI) | payer MEDICARE, SELFPAY ==
--- NOTE | ~2023-05-14 | CT_ITS ---
EXAMINATION: CT abdomen pelvis wo/w con DATE: 05/14/2023 08:16 INDICATION: Microscopic hematuria. 6 mm left kidney mass was reported on 04/14/2021 CT abdomen examina tion. TECHNIQUE: Computed tomography (CT) of the abdomen and pelvis was performed without and subsequently with 130 CC Omnipaque 350 intravenous contrast. Automated exposure control and iterative reconstructi on technique were employed. Exam dose: 2579.61 mGy-cm total exam DLP. COMPARISON: 04/14/2021 CT abdomen 07/27/2020 CT abdomen pelvis FINDINGS: Status post sternotomy and cardiac valve replacements. Cardiomegaly. Prominent coronary art jacquelin calcification. No pericardial or pleural effusion. The lung bases are clear. There is descending thoracic and abdominal aortic dissection. The abdominal aorta measures upper limi ts of normal. There is atherosclerotic calcification of the abdominal aorta, celiac, superior mesente toan, renal, inferior mesenteric and iliac and femoral arteries. The liver, gallbladder, bile ducts, pancreas, pancreatic duct, spleen and adrenal glands appear spring l. No urinary tract calculus or hydroureteronephrosis. There are multiple bilateral renal cysts, measuring up to 9 mm on the right and 2 cm on the left. Prostate enlargement, impressing the base of the urinary bladder. No intraluminal filling defect or f ocal bladder wall thickening is noted. No intraperitoneal or retroperitoneal or pelvic mass lesion or adenopathy or ascites. There is a prominent amount of fecal material in the colon. No bowel obstruction, bowel wall thickeni ng, pneumatosis or intraperitoneal free air. No evidence of appendicitis. Prominent degenerative change at the apophyseal joints of the lower lumbar and lumbosacral area with associated grade 1 anterolisthesis at L4-5. Moderately severe degenerative disc disease and associated mild retrolisthesis at L2-3. No suspicious osteolytic or osteoblastic lesions are noted. IMPRESSION: Status post sternotomy and cardiac valve replacements Cardiomegaly, prominent coronary artery calcification Descending thoracic and abdominal aortic dissection Multiple bilateral probable renal cysts; consider [address] follow-up No urinary tract calculus or hydroureteronephrosis Reviewed, dictated and finalized at Location A. Reviewed, dictated and finalized at location B.
== END 2023-05-14 07:19 | disposition home or self-care (01) ==
LOC: CHSIMG 07:19
PROVIDERS: PCP Internal Medicine; Visit Provider Internal Medicine
DX: R31.29 Other microscopic hematuria (principal); Z95.2 Presence of prosthetic heart valve; I51.7 Cardiomegaly; Z98.890 Other specified postprocedural states
CPT/HCPCS: 74178; Q9967

== ENCOUNTER 2024-02-23 11:00 | Outpatient (RCR) | payer MEDICARE, SELFPAY | END 2024-02-25 14:27 | disposition home or self-care (01) | PROVIDERS: PCP Internal Medicine; Visit Provider Specialist | DX: Z95.2 Presence of prosthetic heart valve (principal) | CPT/HCPCS: 93798 ==

== ENCOUNTER 2024-03-11 10:46 | Emergency (ER) | payer MEDICARE, SELFPAY ==
--- NOTE | ~2024-03-11 | CT_ITS ---
EXAMINATION: CT lumbar spine wo con DATE: 03/11/2024 11:24 INDICATION: Low back pain radiating down both legs. TECHNIQUE: Computed tomography (CT) of the lumbar spine was performed without intravenous contrast. A utomated exposure control and iterative reconstruction technique were employed. The dose-length produ ct was 1007.79 mGy-cm. COMPARISON: CT abdomen and pelvis 05/14/2023 FINDINGS: The aorta demonstrates displaced calcifications, consistent with a chronic dissection. Ther e is an 8 mm hemorrhagic cyst in left kidney. There is 7 degrees dextrocurvature of lumbar spine. The re is 3 mm retrolisthesis of L2 on L3 and 3 mm anterolisthesis of L4 on L5. There is moderately decre ased disc height at L2-L3 and L3-L4 and mildly decreased disc height at L4-L5 and L5-S1. The followin g disc levels are specifically discussed: L1-L2: There is a right foraminal protrusion. There is severe bilateral facet joint osteoarthritis. T here is mild bilateral neural foraminal stenosis. There is no central canal stenosis. L2-L3: The disc is bulging. There is mild bilateral facet joint osteoarthritis. There is moderate joann ateral neural foraminal stenosis. There is mild central canal stenosis. L3-L4: The disc is bulging. There is severe bilateral facet joint osteoarthritis. There is moderate b ilateral neural foraminal stenosis. There is mild central canal stenosis. L4-L5: The disc is bulging. There is severe bilateral facet joint osteoarthritis. There is moderate r ight and mild left neural foraminal stenosis. There is mild central canal stenosis. L5-S1: The disc does not extend beyond the endplate margin. There is severe bilateral facet joint ost eoarthritis. There is moderate right and mild left neural foraminal stenosis. There is no central can al stenosis. IMPRESSION: 1. Severe lumbar spondylosis. 2. Chronic aortic dissection. Reviewed, dictated and finalized at location A.
--- NOTE | ~2024-03-11 | XR_ITS ---
EXAMINATION: XR chest 1V portable DATE: 03/11/2024 11:25 INDICATION: Shortness of breath. TECHNIQUE: A single frontal view of the chest was obtained on 2 radiographs. COMPARISON: Chest 2 views 06/12/2021 FINDINGS: There is no pneumonia, pleural effusion, or pneumothorax. The heart size is normal. There a re changes of heart valve replacements. There is a closure device at left atrial appendage. IMPRESSION: 1. No acute cardiopulmonary disease. Reviewed, dictated and finalized at location A.
--- NOTE | 2024-03-11 10:58 | ECG_ITS ---
SEE SCANNED COPY FOR CONFIRMED REPORT MTDD
[2024-03-11 11:16] LABS: Appearance Urine Clear (Clear); Bilirubin Urine Negative (Negative); Blood Urine Trace-intact (Negative); Color Urine Light Yellow (Yellow); Glucose Urine UA Negative (Negative); Ketones Urine Negative (Negative); Leukocyte Esterase Ur Negative LEU/UL (Negative); Nitrate Urine Negative (Negative); Protein Urine Negative (Negative); Specific Grav Ur 1.015 (1.010-1.020); Urobilinogen Urine 0.2 mg/dL (0.2-1.0); pH Urine 6.5 (5.0-8.0)
[2024-03-11 11:18] LABS: Add Urine Microscopic? YES; Bacteria Urine Trace /hpf; Squamous Epithelial Cell Urine Rare /hpf (Few); WBC Urine None seen /hpf (0-3)
[2024-03-11] MEDS: KETOROLAC 30 MG/ML VIAL (*BKC) IM (11:22)
[2024-03-11 11:32] VITALS: BP 157/92; PULSE 58; RESP 20; O2SAT 97
--- NOTE | 2024-03-11 11:41 | ED.BACK ---
HPI - Back Pain/Injury General Chief Complaint: Back Pain/Injury Stated Complaint: back pain and high blood pressure Time Seen by Provider: 03/11/24 10:48 Source: patient and family Mode of arrival: wheelchair Limitations: no limitations History of Present Illness HPI Narrative: this is a 78-year-old male with a history of CAD presents with lower back pain with some radiation into his right upper leg with some no fever chills no known injury, although the patient was using his right along more yesterday and subsequently developed this right lower back pain. There is no fever chills no dysuria no flank pain no chest pain or shortness of breath. MD elicited complaint: back pain Pertinent past history: prior back pain Onset (ago): day(s) Timing: constant Severity: moderate Pain scale (0-10): 6 Similar Symptoms Previously: Yes Quality: aching and spasming Location: right lower back Radiation: right upper leg Exacerbating factors: movement Relieving factors: immobilization Related Data Home Medications Medication Instructions Recorded Confirmed aspirin 81 mg tablet,delayed 81 mg PO DAILY 07/13/20 03/11/24 release (Nina Low Dose Aspirin) calcium carb-magnesium oxide-vit 1 tablet PO DAILY 07/13/20 03/11/24 D3 400 mg-167 mg-133 unit tablet (Calcium Magnesium + D) furosemide 20 mg tablet 40 mg PO DAILY 07/13/20 03/11/24 losartan 50 mg tablet 40 mg PO DAILY 07/13/20 03/11/24 potassium chloride 10 mEq 20 meq PO TID 07/13/20 03/11/24 tablet,extended release metoprolol succinate 50 mg 100 mg PO DAILY 07/27/20 03/11/24 tablet,extended release 24 hr Allergies Allergy/AdvReac Type Severity Reaction Status Date / Time NADINE Inhibitors Allergy Unknown Unknown Verified 07/13/20 18:40 No Known Allergies Verified 09/16/09 20:03 Review of Systems Review of Systems: All systems reviewed & are unremarkable except as noted in HPI and below [facility] Past Medical History Medical History (Updated 03/11/24 @ 11:45 by Andre Marshall MD) ASD (atrial septal defect) Atrial fibrillation DVT (deep venous thrombosis) Dyslipidemia Hypertension Obstructive sleep apnea Systolic congestive heart failure Surgical History Surgical History Aortic valve replaced Presence of stent in coronary artery Family History Family History Father Hypertension Mother Patient's mother is in good health Social History Social History Smoking status: Former smoker Substance use: never Living arrangements: with family Gender identity (if verbalized by the patient): Male Exam Const: General: healthy appearing and no acute distress Nutritional Appearance: well nourished Orientation/consciousness: patient oriented x3 Limitations: no limitations Neck: Neck: normal visual inspection Chest: Chest palpation & inspection: normal inspection of the chest Resp: Effort & Inspection: normal respiratory effort Auscultation: clear to auscultation bilaterally Cardio: Rate: regular rate Rhythm: abnormal rhythm GI: GI Palp: Yes Soft to palpation Auscultation: normal bowel sounds : General: Yes bladder normal to palpation Skin: General skin exam: normal color Rashes: no rashes Neuro: General: patient oriented x3, moves all extremities, no meningeal signs and no focal motor deficits Extrem: Other: Low back pain with a positive straight leg raising test on the right Course Course Emergency Course: patient received IM dose of 30mg Toradol and after reassessment patient's pain level has significantly improved. UA EKG were reviewed and without any significant abnormality, chest x-ray with no cardiopulmonary abnormalities acutely, CT scan of the lumbar spine shows bulging disc and spondylosis. Vital Signs Vital signs: Vital Signs Pulse Rate 58
[2024-03-11 11:45] VITALS: O2SAT 95
[2024-03-11 11:46] VITALS: BP 130/93; PULSE 58; RESP 20; O2SAT 97
== END 2024-03-11 12:01 | disposition home or self-care (01) ==
PROVIDERS: Emergency Provider Emergency Medicine; PCP Internal Medicine
DX: S39.012A Strain of muscle, fascia and tendon of lower back, initial encounter (principal); M54.31 Sciatica, right side; I11.0 Hypertensive heart disease with heart failure; I50.20 Unspecified systolic (congestive) heart failure; I25.10 Atherosclerotic heart disease of native coronary artery without angina pectoris; I48.91 Unspecified atrial fibrillation; E78.5 Hyperlipidemia, unspecified; G47.33 Obstructive sleep apnea (adult) (pediatric); Z79.82 Long term (current) use of aspirin; Z95.4 Presence of other heart-valve replacement; Z95.5 Presence of coronary angioplasty implant and graft; Z87.891 Personal history of nicotine dependence; X58.XXXA Exposure to other specified factors, initial encounter
CPT/HCPCS: 71045; 72131; 81001; 93005; 96372; 99284; J1885

== ENCOUNTER 2024-05-10 07:59 | Outpatient (CLI) | payer MEDICARE, SELFPAY ==
--- NOTE | ~2024-05-10 | CT_ITS ---
CTA chest abdomen pelvis Ordering provider: Harvey Oshea MD History: . AORTIC DISSECTION/CHF,FOLLOW UP,H/O MULTI AORTIC SURGERIES . Comparison: None. Technique: CT angiogram chest, abdomen and pelvis was performed following timed intravenous injection of contrast. Thin slice axial images and reformatted coronal images were obtained. Three dimensional reformatted images of the chest were also obtained using a [employer] workstation. Radiation reduction t echnique utilized. DLP is 1440.01 mGy-cm. 100 mL of Omnipaque 350 was given IV. FINDINGS: CHEST: --THORACIC AORTA: Aortic dissection is noted which extend to the iliac arteries suggestive of Stanfor d type A dissection. --GREAT VESSELS: Normal as visualized. --PULMONARY ARTERIES: No pulmonary embolus. --VISUALIZED THORACIC INLET: Normal. --MEDIASTINUM: Coronary arteries: Atherosclerotic changes. Heart/other: Moderate cardiomegaly. Lymph nodes: No mediastinal or hilar adenopathy. Postoperative changes in the mediastinum. --LUNGS: No pulmonary nodules or masses. No infiltrates or effusions. No pneumothorax. Azygos lobe is noted. --MUSCULOSKELETAL: Superficial soft tissues: The superficial soft tissues are normal. Bones: Age appropriate degenerative changes of the spine. Post operative changes in the sternum. ABDOMEN/PELVIS: --MUSCULOSKELETAL: Bones: Age appropriate degenerative changes of the spine. Bilateral sacroiliacs. Superficial soft tissues: The superficial soft tissues are normal. --UPPER ABDOMINAL ORGANS: Liver: Normal. Gallbladder: Cholelithiasis. Spleen: Normal. Stomach/duodenum: Normal. Pancreas: Normal. Adrenals: Normal. Kidneys: Small cysts in the right kidney lower pole and in the midpole medially. The left kidney show s a cyst in the upper pole measuring 1.8 cm. Other smaller 1's are seen in the upper, mid and lower p oles. --PELVIC ORGANS: The bladder is normal. No bladder stones. --BOWEL AND MESENTERY: Colon: No evidence of diverticulitis. No evidence of appendicitis. Small Bowel: Normal. No obstruction. Peritoneum/mesentery: No free air or free fluid. No mesenteric lymphadenopathy. --RETROPERITONEUM: Enlarged left para-aortic lymph nodes the largest measures 1.7 cm . --ARTERIES: ABDOMINAL AORTA aortic dissection Wagoner type A upper abdominal arteries are originating from the true lumen. RENAL ARTERIES: Atherosclerotic changes. CELIAC AXIS: Atherosclerotic changes. SMA: Atherosclerotic changes SAMI: Atherosclerotic changes. ILIAC AND VISUALIZED FEMORAL ARTERIES: Atherosclerotic changes with dissection in the common iliac arteries more on the right. MESENTERIC ARTERIES: Normal. IMPRESSION: CHEST: 1. Aortic dissection type A. 2. Cardiomegaly with postoperative changes. 3. No acute lung lesion ABDOMEN/PELVIS: 1. Aortic dissection type A. 2. Cholelithiasis. 3. Bilateral renal cysts. 4. Slightly enlarged left para-aortic lymph nodes Reviewed, dictated and finalized at location A.
== END 2024-05-10 08:00 | disposition home or self-care (01) ==
LOC: CHSIMG 08:00
PROVIDERS: PCP Internal Medicine; Visit Provider Internal Medicine
DX: I50.9 Heart failure, unspecified (principal); I71.00 Dissection of unspecified site of aorta; K80.20 Calculus of gallbladder without cholecystitis without obstruction; N28.1 Cyst of kidney, acquired; R59.0 Localized enlarged lymph nodes
CPT/HCPCS: 71275; 74174; Q9967

== ENCOUNTER 2024-05-10 22:28 | Emergency (ER) | payer MEDICARE, SELFPAY ==
[2024-05-10] VITALS (11 sets, daily range): BP systolic 128–165; BP diastolic 79–111; PULSE 75–85; RESP 16–28; TEMP 36.1; O2SAT 92–98
--- NOTE | ~2024-05-10 | XR_ITS ---
XR chest 1V portable Ordering provider: Abdi Smith MD History: 78 years Male with . DIAPHORETIC/HX OF CHF . Comparison: March 11, 2024 FINDINGS: MEDIASTINUM: The cardiac silhouette is moderately enlarged. Postoperative changes in the mediastinum. Congestive diana. LUNGS: No infiltrates, effusions or pneumothorax. Prominent markings in the left lower lobe. OTHER: No free air under the diaphragm. Degenerative spine. IMPRESSION: Cardiomegaly. No acute lung lesion. Reviewed, dictated and finalized at location A.
--- NOTE | 2024-05-10 22:40 | ED.SOB ---
HPI - SOB/Dyspnea General Chief Complaint: Shortness of Breath/Dyspnea Stated Complaint: lower extremity problem Time Seen by Provider: 05/10/24 22:31 Source: patient Mode of arrival: ambulatory Limitations: no limitations History of Present Illness HPI Narrative: 78-year-old male, ex-smoker with a history of anxiety,hypertension, dyslipidemia, CAD status post LAD stent 2016, status post AVR/ PVR/ PFO closure/ left atrial clip in 2017, ascending aortic dissection section status post ascending/ arch replacement in 2019 in [facility], Aortic aneurysm status post surgery in May of 2023, atrial fibrillation on Eliquis, systolic and diastolic dysfunction with an EF of 40%,DVT, PASCALE presents to the ED with -- bilateral leg swelling -- right thigh pain which has not resolved with Ultram. He has no prior history of right thigh pain. -- Shortness of breath, paroxysmal nocturnal dyspnea and dyspnea on exertion which appears to be chronic the patient had CT of the chest/abdomen/ pelvis this morning which revealed a type a dissection. renal cysts, left para-aortic lymphadenopathy MD elicited complaint: shortness of breath Onset (ago): hour(s) ( 4 hours ago) Exacerbating factors: lying flat and exertion Relieving factors: nothing Known history of: congestive heart failure Associated symptoms: denies other symptoms, orthopnea and other ( right thigh pain) Treatment prior to arrival: none and other ( Ultram) Related Data Home oxygen amount: none Home Medications Medication Instructions Recorded Confirmed aspirin 81 mg tablet,delayed 81 mg PO DAILY 07/13/20 05/10/24 release (Nina Low Dose Aspirin) calcium 400 mg 1 tablet PO DAILY 07/13/20 05/10/24 (carbonate)-magnesium 167 mg (oxide)-D3 133 unit tablet (Calcium Magnesium plus D) furosemide 20 mg tablet 40 mg PO BID 07/13/20 05/10/24 losartan 50 mg tablet 50 mg PO DAILY 07/13/20 05/10/24 potassium chloride 10 mEq 20 meq PO TID 07/13/20 05/10/24 tablet,extended release metoprolol succinate 50 mg 100 mg PO BID 07/27/20 05/10/24 tablet,extended release 24 hr apixaban 5 mg tablet (Eliquis) 5 mg PO BID 05/10/24 05/10/24 atorvastatin 40 mg tablet 40 mg PO DAILY 05/10/24 05/10/24 Allergies Allergy/AdvReac Type Severity Reaction Status Date / Time NADINE Inhibitors Allergy Unknown Unknown Verified 07/13/20 18:40 No Known Allergies Verified 09/16/09 20:03 Review of Systems Review of Systems: All systems reviewed & are unremarkable except as noted in HPI and below Constitutional: Constitutional: Reports as per HPI and Reports no additional constitutional complaints Eyes: Eyes: Reports as per HPI and Reports no additional eye complaints ENT: Reports system reviewed and no additional complaints, except as documented and Reports as per HPI Comments: patient uses hearing aids Cardiovascular: Cardiovascular: Reports as per HPI and Reports no additional cardiovascular complaints Comments: shortness of breath,dyspnea on exertion, proximal nocturnal dyspnea Respiratory: Respiratory: Reports as per HPI and Reports dyspnea Gastrointestinal: Gastrointestinal: Reports as per HPI and Reports no additional gastrointestinal complaints Genitourinary: Genitourinary: Reports no additional male genitourinary complaints Musculoskeletal: Musculoskeletal: Reports no additional musculoskeletal complaints Comments: right thigh pain Integumentary/Breasts: Skin/Breast: Reports system reviewed and no additional complaints, except as docu and Reports as per HPI Neurologic: Reports system reviewed and no additional complaints, except as documented and Reports as per HPI Psychiatric: Psychiatric: Reports no additional psychiatric complaints and Reports as per HPI Endocrine: Endocrine: Reports no additional endocrine complaints and Reports as per HPI Hematologic/Lymphatic: Hematologic/Lymphatic: Reports no additional hematologic/lymphatic complaints
--- NOTE | 2024-05-10 22:42 | PC.NURSE ---
Dr Smith at the bedside
--- NOTE | 2024-05-10 23:02 | ECG_ITS ---
Test Date: 2024-05-10 23:06:24 Measurements Intervals [place] Rate: 80 P: 0 [place]: 0 QRS: -62 QRSD: 182 T: 114 QT: 439 QTc: 509 Interpretive Statements ATRIAL FIBRILLATION WITH ABERRANT CONDUCTION OR VENTRICULAR PREMATURE COMPLEXES LEFT AXIS DEVIATION LEFT BUNDLE BRANCH BLOCK ABNORMAL ECG No previous ECG available for comparison Electronically Signed On 05-11-2024 06:29:53 CDT by Wayne Lozada D.O.
[2024-05-10] MEDS: HYDROmorphone HCL INJ (*CRX) 2 MG/ML VIAL 0.5 MG IV PUSH (23:08)
[2024-05-10] MEDS: ONDANSETRON INJ 4 MG/2 ML VIAL IV PUSH (23:08)
[2024-05-10] MEDS: LABETALOL HCL INJ 100 MG/20 ML VIAL 10 MG IV PUSH ×2 (23:09→23:28)
[2024-05-10 23:10] LABS: Basophils Absolute Auto 0.04 K/mm3 (0.00-0.10); Basophils Percent Auto 0.8 % (0.0-1.0); Eosinophils Absolute Auto 0.09 K/mm3 (0.02-0.50); Eosinophils Percent Auto 1.9 % (1.0-6.0); Hematocrit 39.6 % (37.0-46.0); Hemoglobin 12.7 g/dL (12.4-15.3); Immature Granulocyte Absolute 0.02 K/mm3 (0.00-0.00); Immature Granulocyte Percent A 0.4 % (0.0-0.0); Lymphocytes Absolute Auto 0.61 K/mm3 (1.10-4.50); Lymphocytes Percent Auto 12.9 % (18.0-42.0); Mean Corpuscular HGB Conc 32.1 g/dL (32-36); Mean Corpuscular Hemoglobin 28.9 pg (27.0-31.0); Mean Platelet Volume 10.2 fl (8.7-11.0); Monocytes Absolute Auto 0.61 K/mm3 (0.10-0.90); Monocytes Percent Auto 12.9 % (2.0-11.0); Neutrophils Absolute Auto 3.36 K/mm3 (1.70-7.20); Neutrophils Percent Auto 71.1 % (50.0-70.0); Platelet Count Result 136 K/mm3 (150-420); Red Cell Distribution Width 15.8 % (11.6-14.4); White Blood Count 4.7 K/mm3 (4.8-10.8)
--- NOTE | 2024-05-10 23:19 | PC.NURSE ---
xray at the bedside
--- NOTE | 2024-05-10 23:24 | PC.NURSE ---
pt handed urinal and trying to urinate
--- NOTE | 2024-05-10 23:25 | PC.NURSE ---
Dr Smith notified of current blood pressure. new order for labetalol 10mg ivp to be given
[2024-05-10 23:31] LABS: Alanine Aminotransferase 21 U/L (16-63); Albumin Level 3.6 g/dL (3.4-5.0); Alkaline Phosphatase 121 U/L (46-116); Anion Gap 9 mmol/L (4-12); Aspartate Amino Transferase 25 U/L (15-37); Bilirubin,Total 1.5 mg/dL (0.00-1.00); Blood Urea Nitrogen 32 mg/dL (7-18); Calcium 9.1 mg/dL (8.5-10.1); Carbon Dioxide 25 mmol/L (21-32); Chloride 102 mmol/L (98-108); Creatine Kinase 90 U/L (39-308); Estimated CRCL calculation 43 ml/min; Estimated Glomerular Filt Rate 47; Glucose 142 mg/dL (70-99); NT Pro B Type Natriuretic Pept 4253 pg/mL (0-450); Osmolality Calculated 290 mOsm/kg (285-295); Sodium 136 mmol/L (136-145); Total Protein 7.1 g/dL (6.4-8.2); Troponin I 47.4 ng/L (0.00-60.4)
--- NOTE | 2024-05-10 23:33 | PC.NURSE ---
patient reports that he is feeling better. daughter is at the bedside. call light in reach.
[2024-05-10 23:56] LABS: Appearance Urine Clear (Clear); Bilirubin Urine Negative (Negative); Blood Urine 2+ (Negative); Color Urine Yellow (Yellow); Glucose Urine UA Negative (Negative); Ketones Urine Trace (Negative); Leukocyte Esterase Ur Negative LEU/UL (Negative); Nitrate Urine Negative (Negative); Protein Urine 2+ (Negative)
[2024-05-10 23:59] LABS: Add Urine Microscopic? YES; Bacteria Urine Trace /hpf; WBC Urine 0-3 /hpf (0-3)
[2024-05-11] VITALS (11 sets, daily range): BP systolic 110–144; BP diastolic 61–85; PULSE 70–82; RESP 17–22; O2SAT 91–94
--- NOTE | 2024-05-11 00:04 | PC.NURSE ---
Dr Smith notified of currentl blood pressure. requested to call lars grider
--- NOTE | 2024-05-11 00:51 | PC.NURSE ---
Daughter, Nikki, went home to get some rest. This RN will notify her when patient is transferred. Patient resting quietly on stretcher. Call light in reach.
--- NOTE | 2024-05-11 01:22 | PC.NURSE ---
patient is resting quietly on stretcher. appears to be sleeping. resp even and unlabored. call light in reach. lights turned off.
== END 2024-05-11 02:11 | disposition short-term general hospital (02) ==
PROVIDERS: Emergency Provider Internal Medicine Critical Care Medicine; PCP Internal Medicine
DX: I71.010 Dissection of ascending aorta (principal); I77.72 Dissection of iliac artery; N17.9 Acute kidney failure, unspecified; M79.651 Pain in right thigh; E78.5 Hyperlipidemia, unspecified; I25.10 Atherosclerotic heart disease of native coronary artery without angina pectoris; I10 Essential (primary) hypertension; I48.91 Unspecified atrial fibrillation; Z79.82 Long term (current) use of aspirin; Z79.01 Long term (current) use of anticoagulants; Z79.899 Other long term (current) drug therapy; Z86.718 Personal history of other venous thrombosis and embolism; Z87.891 Personal history of nicotine dependence
CPT/HCPCS: 36415; 71045; 80053; 81001; 82550; 83605; 83880; 84484; 85025; 93005; 96374; 96375; 99285; J1170; J2405

== ENCOUNTER 2024-06-08 14:56 | Outpatient (CLI) | payer MEDICARE, SELFPAY ==
[2024-06-08 15:13] LABS: Hematocrit 43.3 % (37.0-46.0); Hemoglobin 13.7 g/dL (12.4-15.3); Mean Corpuscular HGB Conc 31.6 g/dL (32-36); Mean Corpuscular Hemoglobin 28.8 pg (27.0-31.0); Mean Corpuscular Volume 91.2 fL (78.0-102.0); Mean Platelet Volume 8.9 fl (8.7-11.0); Platelet Count Result 139 K/mm3 (150-420); Red Blood Count 4.75 M/mm3 (4.70-6.10); White Blood Count 6.3 K/mm3 (4.8-10.8)
[2024-06-08 16:09] LABS: Anion Gap 7 mmol/L (4-12); Blood Urea Nitrogen 33 mg/dL (7-18); Calcium 9.5 mg/dL (8.5-10.1); Carbon Dioxide 28 mmol/L (21-32); Chloride 101 mmol/L (98-108); Estimated Glomerular Filt Rate 48; Glucose 111 mg/dL (70-99); NT Pro B Type Natriuretic Pept 3199 pg/mL (0-450); Osmolality Calculated 290 mOsm/kg (285-295); Potassium 4.8 mmol/L (3.5-5.1); Sodium 136 mmol/L (136-145)
== END 2024-06-08 14:57 | disposition home or self-care (01) ==
PROVIDERS: PCP Internal Medicine; Visit Provider Internal Medicine
DX: I50.1 Left ventricular failure, unspecified (principal)
CPT/HCPCS: 36415; 80048; 83880; 85027

== ENCOUNTER 2024-08-28 08:46 | Outpatient (CLI) | payer MEDICARE, SELFPAY ==
[2024-08-28 10:36] LABS: Anion Gap 8 mmol/L (4-12); Blood Urea Nitrogen 39 mg/dL (7-18); Calcium 9.2 mg/dL (8.5-10.1); Carbon Dioxide 29 mmol/L (21-32); Chloride 103 mmol/L (98-108); Estimated Glomerular Filt Rate 56; Glucose 84 mg/dL (70-99); NT Pro B Type Natriuretic Pept 1116 pg/mL (0-450); Osmolality Calculated 298 mOsm/kg (285-295); Potassium 4.3 mmol/L (3.5-5.1); Sodium 140 mmol/L (136-145)
== END 2024-08-28 08:47 | disposition home or self-care (01) ==
LOC: CHSLAB 08:49
PROVIDERS: PCP Internal Medicine
DX: I50.1 Left ventricular failure, unspecified (principal)
CPT/HCPCS: 36415; 80048; 83880

== ENCOUNTER 2025-01-29 09:59 | Outpatient (CLI) | payer MEDICARE, SELFPAY ==
[2025-01-29 11:18] LABS: Alanine Aminotransferase 27 U/L (16-63); Alkaline Phosphatase 140 U/L (46-116); Anion Gap 5 mmol/L (4-12); Aspartate Amino Transferase 23 U/L (15-37); Bilirubin,Total 1.4 mg/dL (0.00-1.00); Blood Urea Nitrogen 33 mg/dL (7-18); Calcium 9.8 mg/dL (8.5-10.1); Carbon Dioxide 31 mmol/L (21-32); Chloride 103 mmol/L (98-108); Estimated Glomerular Filt Rate 47; Glucose 93 mg/dL (70-99); NT Pro B Type Natriuretic Pept 2277 pg/mL (0-450); Osmolality Calculated 295 mOsm/kg (285-295); Potassium 5.5 mmol/L (3.5-5.1); Sodium 139 mmol/L (136-145); Total Protein 7.5 g/dL (6.4-8.2)
--- OUTSIDE RECORDS SUMMARY | 2025-01-29 11:24 | XMS_ITS | Encounter Summary ---
Author Organization [facility] Address [address] [place] [address] Care Team Providers Care Datapower Consultant Name Role Phone Harvey Oshea MD Primary Care Provider [phone] Power Paulino MD Unavailable [phone] Gerry Farnsworth MD Unavailable Brendon Dockery MD Unavailable [phone] Keiko Camargo APRN, NP-C Unavailable Encounter Details Date Type Department Care Team (Late st Contact Info) Description 12/29/2023 Abstract [facility] [address] [place] [address] Power Paulino MD [address] [place] [address] Social History Tobacco Use Types Packs/Day Years Used Date Smoking Tobacco: Former Cigarettes 0.5 10 0 10/25/1964 - 10/25/1974 Smokeless Tobacco: Never Alcohol Use Standard Drinks/Week Comments No 0 (1 standard drink = 0.6 oz pur e alcohol) Sex and Gender Information Value Date Recorded Sex Assigned at Not on file Legal Sex Male 7:17 PM CDT Gender Identity Male 12/01/2021 4:45 AM [employer] Sexual Orientation Straight 12/01/2021 4: 45 AM [employer] documented as of this encounter Functional Status * RETIRED Are you deaf or do you have serious difficulty hearing Answer Date of Assessment Author Status No 07/21/2020 6:23 PM CDT Activ e * RETIRED Are you blind or do you have serious difficulty seeing, even when wearing glasses? Answer Date of Assessment Author Status No 07/21/2020 6:23 PM CDT Activ e * Do you have serious difficulty walking or climbing stairs? Answer Date of Assessment Author Status No 07/21/2020 6:23 PM Rachelle Ariza RN Active * Do you have difficulty dressing or bathing? Answer Date of Assessment Author Status No 07/21/2020 6:23 PM Rachelle Ariza RN Active * Because of a physical, mental, or emotional condition, do you have difficulty doing errands alone such as visiting a doctor's office or shopping? Answer Date of Assessment Author Status No 07/21/2020 6:23 PM Rachelle Ariza RN Active documented as of this encounter Mental Status * Because of a physical, mental, or emotional condition, do you have serious difficulty concentrating, remembering, or making decisions? Answer Entry Date Author Status No 07/21/2020 6:23 PM Rachelle Ariza RN Active documented in this encounter Plan of Treatment Not on file documented as of this encounter Procedures Procedure Name Priority Date/Time Associated Diagnosis Comments BNP Routine 12/14/2023 BASIC METABOLIC PANEL Routine 12/14/2023 CMP (ABSTRACTED LAB) Routine 11/10/2023 TSH (OUTSIDE LAB) Routine 11/10/2023 CBC (OUTSIDE LAB) Routine 11/10/2023 HEMOGLOBIN, GLYCOSYLATED Routine 11/10/2023 LIPID PANEL Routine 11/10/2023 documented in this encounter Results * BNP (12/14/2023) B TYPE NATRIURETIC PEPTIDE 281 <100 12/14/2023 us Harvey Oshea MD LABORATORY Final Result * BASIC METABOLIC PANEL (12/14/2023) Pathologist [facility] SODIUM S/P/B 140 135 - 146 POTASSIUM S/P/B 4.3 3.5 - 5.3 CO2 29 20 - 32 CHLORIDE S/P/B 104 98 - 110 GLUCOSE 88 65 - 99 mg/dL CALCIUM S/P/B 9.4 8.6 - 10.3 BUN 27 7 - 25 CREATININE S/P/B 1.14 0.7 - 1.28 12/14/2023 Result [facility] Harvey Oshea MD LABORATORY Final Result * CBC (OUTSIDE LAB) (11/10/2023) Pathologist [facility] WBC 5.3 3.8 - 10.8 HGB 12.1 13.2 - 17.1 HCT 37.9 38.5 - 50.0 PLT 181 140 - 400 RBC 4.27 4.20 - 5.80 MCV 88.8 80.0 - 100.0 MCH 28.3 27.0 - 33.0 MCHC 31.9 32.0 - 36.0 RDW 13.0 11.0 - 15.0 MPV 10.3 7.5 - 12.5 ABS. NEUTROPHILS 3,350 1,500 - 7,800 ABS. LYMPHOCYTES 827 850 - 3,900 ABS. MONOCYTES 954 200 - 950 ABS. EOSINOPHILS 127 15 - 500 ABS. BASOPHILS 42 0 - 200 NEUTROPHILS % 63.2 LYMPHOCYTES 15.6 MONOCYTES 18.0 EOSINOPHILS % 2.4 BASOPHILS % 0.8 11/10/2023 Result [facility] Harvey Oshea MD LAB-OUTSIDE/ABSTRACTED Final Result * TSH (OUTSIDE LAB) (11/10/2023) Pathologist [facility] TSH 1.03 0.40 - 4.50 FREE T4 1.4 0.8 - 1.8 TOTAL CK 42 44 - 196 11/10/2023 us Harvey Oshea MD LAB-OUTSIDE/ABSTRACTED Final Result * HEMOGLOBIN, GLYCOSYLATED (11/10/2023) HGB A1C 5.2 <5.7 % 11/10/2023 Result [facility] us Harvey Oshea MD LABORATORY Final Result * CMP (ABSTRACTED LAB) (11/10/2023) SODIUM S/P/B 137 135 - 146 POTASSIUM S/P/B 4.3 3.5 - 5.3 CHLORIDE S/P/B 104 98 - 110 CO2 27 20 - 32 BUN 21 7 - 25 CREATININE S/P/B 1.01 0.7 - 1.28 CALCIUM S/P/B 9.3 8.6 - 10.3 GLUCOSE 106 65 - 99 mg/dL TOTAL PROTEIN S/P/B 6.8 6.1 - 8.1 ALBUMIN S/P/B 3.9 3.5 - 5.1 AST 17 10 - 35 ALT 11 9 - 46 ALKALINE PHOSPHATASE S/P/B 92 35 - 144 BILIRUBIN TOTAL S/P/B 0.8 0.2 - 1.2 11/10/2023 Result Balnca Oshea MD LAB-OUTSIDE/ABSTRACTED Final Result * LIPID PANEL (11/10/2023) CHOLESTEROL 137 <200 HDL 57 >or=40 TRIGLYCERIDES 44 <150 NON HDL CHOLESTEROL 80 <130 CHOL/HDL RATIO 2.4 <5.0 LDL (CALCULATED) 67 11/10/2023 Result [facility] us Harvey Oshea MD LABORATORY Final Result documented in this encounter Visit Diagnoses Not on filedocumented in this encounter Care Teams Datapower Consultant Relationship Specialty Start Date End Date Harvey Oshea MD [address] [place] [address] PCP - General INTERNAL MEDICINE 01/05/18 Power Paulino MD [address] [place] [address] [facility] CARDIOVASCULAR DISEASE 01/05/18 06/06/24 Gerry Farnsworth MD [address] [place] [address] Surgeon Surgical Critical Care 06/15/21 Brendon Dockery MD [address] [place] [id number] UROLOGY 12/01/21 eKiko Camargo, SANITARY ENGINEER, TELEPHONE BETTING CLERK-C [address] [facility] [address] [place] [address] NURSE PRACTITIONER 06/07/24 documented as of this encounter
--- OUTSIDE RECORDS SUMMARY | 2025-01-29 11:24 | XMS_ITS | Clinical Summary ---
Author Organization [facility] Address [address] [place] [address] Care Team Providers Care Clinical Manager Name Role Phone Harvey Oshea MD Primary Care Provider [phone] Gerry Farnsworth MD Unavailable Brendon Dockery MD Unavailable [phone] Rosy Alvarez APRN, PHYSICAL CHEMIST-C Unavailable Allergies No known active allergies Medications aspirin EC (ECOTRIN) 81 MG tablet Take 1 tablet (81 mg total) by mouth daily. Active furosemide 40 MG tablet Take 2 tablets (80 mg total) by mouth daily. Active apixaban 5 MG tablet Take 1 tablet (5 mg total) by mouth 2 (two) times daily. Active KLOR-CON M20 20 MEQ tablet Take 1 tablet (20 mEq total) by mouth 3 (three) times a day. 1 Active fluticasone propionate (FLONASE) 50 MCG/ACT nasal spray as needed. 2 Active amoxicillin (AMOXIL) 500 MG capsule Prior to dental appointment 2 Active losartan (COZAAR) 50 MG tablet Take 1 tablet (50 mg total) by mouth daily. 30 tablet 11 4 Active metoprolol succinate ER (TOPROL-XL) 100 MG 24 hr tablet TAKE 1 TABLET BY MOUTH TWICE DAILY 180 tablet 3 4 Active Active Problems Problem Noted Date Diagnosed Date S/P patent foramen ovale closure 03/11/2024 S/P aortic dissection repair 03/19/2022 Ascending aortic dissection ([facility]) Ascending aortic aneurysm 06/27/2020 S/P AVR (aortic valve replacement) 06/02/2018 PFO (patent foramen ovale) ([facility]) 06/02/2018 S/P mitral valve repair 06/02/2018 S/P tricuspid valve repair 06/02/2018 Aortic stenosis 04/06/2018 HTN (hypertension) 02/06/2018 S/P coronary artery stent placement 02/06/2018 Chronic systolic heart failure ([facility]) 01/11/2018 Hypercholesterolemia 01/11/2018 Aortic valve disease 01/11/2018 CAD (coronary artery disease) 10/25/2016 Overview (01/11/2018): s/p pci and stent of lad Atrial fibrillation ([facility]) Resolved Problems Problem Noted Date Diagnosed Date Resolved Date Fatigue 01/11/2018 01/11/2018 PASCALE treated with BiPAP 01/11/201801/11 Immunizations Name Administration Dates Next Due Fluzone 6 Months+ Quad (0.5 mL Prefilled Syringe ) 07/21/2020 Family History Medical History Relation Comments Cancer Mother Hyperlipidemia Mother Hypertension Mother Relation Status Comments Mother Social History Tobacco Use Types Packs/Day Years Used Date Smoking Tobacco: Former Cigarettes 0.5 10 0 10/25/1964 - 10/25/1974 Smokeless Tobacco: Never Tobacco Cessation:Counseling Given: Not Answered Alcohol Use Standard Drinks/Week Comments No 0 (1 standard drink = 0.6 oz pur e alcohol) Sex and Gender Information Value Date Recorded Sex Assigned at Not on file Legal Sex Male 7:17 PM CDT Gender Identity Male 12/01/2021 4:45 AM TEST ENGINEERING MANAGER Sexual Orientation Straight 12/01/2021 4: 45 AM TEST ENGINEERING MANAGER Last Filed Vital Signs Vital Sign Reading Time Taken Comments Blood Pressure 144/86 12/22/2023 8:26 AM TEST ENGINEERING MANAGER Pulse 67 12/22/2023 8:25 AM TEST ENGINEERING MANAGER Temperature 36.8 C (98.2 F) 07/23/2020 1:40 PM CDT Respiratory Rate 17 12/22/2023 8:25 AM TEST ENGINEERING MANAGER Oxygen Saturation 100% 12/22/2023 8:25 AM TEST ENGINEERING MANAGER Inhaled Oxygen Concentration - - Weight 103 kg (227 lb) 12/22/2023 8:25 AM TEST ENGINEERING MANAGER Height 182.9 cm (6') 12/22/2023 8:25 AM TEST ENGINEERING MANAGER Body Mass Index 30.79 12/22/2023 8:25 AM TEST ENGINEERING MANAGER Plan of Treatment Health Maintenance Due Date Last Done Comments ASCVD Statin 1945 Pneumococcal Vaccine: 65+ Years (1 of 2 - PCV) 1953 Hepatitis C 1965 DTaP, Tdap and Td Vaccines (1 - Tdap) 1966 Zoster Vaccines (1 of 2) 1997 Annual Medicare Wellness Visit 2012 RSV Immunization or 60+ Years (1 - 1-dose 75+ series) 2022 COVID-19 Vaccine ( - 2023- season) 2024 ASCVD LDL 11/10/2024 11/10/2023, 10/25, 07/14/2020 AAA SCREENING Completed 09/23/2023, 07/27, 08/24/2023, Additional history exists Meningococcal B Vaccine Aged Out No l onger eligible based on patient's age to complete this topic Meningococcal Vaccine Aged Out No marly alonzo eligible based on patient's age to complete this topic RSV Immunizations Under 20 Months Aged Out No longer eligible based on patient's age to complete this topic Medical Devices Implanted Type Area Pit Crane Operator Device Identifier Shelf Expiration Date Model / Serial / Lot Parikh Intuity Elite Aortic Valve Implanted:Qty: 1 on 04/06/2018 by Tha Miller MD at [facility] Valve Implant N/A: Heart 07/12/2021 / [id number] / [id number] Atriclip-Flex Anitra Exclusion Atricure 45mm - [id number] Implanted:Qty: 1 on 04/06/2018 by Tha Miller MD at [facility] N/A: Heart ATRICURE 01/23/2021 ACH 145 / / [id number] Ring Lalita Parikh Physio Mitral 26mm - [id number] Implanted:Qty: 1 on 04/06/2018 by Tha Miller MD at [facility] N/A: Heart [employer] 03/24/2022 [id number] / / Ring Annuloplasty 28mm Tricuspid 1 Seam 2 Wrap Anatomic Parikh Mc3 Titanium Silicone Rubber Polyester Sterile - [id number] Implanted:Qty: 1 on 04/06/2018 by Tha Miller MD at [facility] N/A: Heart [employer] 10/03/2022 [id number] / / Graft Hemashield Woven Atrium 32mm X 30cm - [id number] Implanted:Qty: 1 on 07/14/2020 by Kourtney Bashir MD at [facility] N/A: Heart [employer] 01/22/2025 [id number] / [id number] Description:Inventory notifi - rosa Procedures Procedure Name Priority Date/Time Associated Diagnosis Comments LIPID PANEL Routine 11/10/2023 CTA CHEST+ABD+PEL Routine 06/03/2023 2:0 1 PM CDT S/P aortic dissection repair from Last 3 Months or Most Recently Relevant to Health Maintenance Results * LIPID PANEL (11/10/2023) CHOLESTEROL 137 <200 HDL 57 >or=40 TRIGLYCERIDES 44 <150 NON HDL CHOLESTEROL 80 <130 CHOL/HDL RATIO 2.4 <5.0 LDL (CALCULATED) 67 11/10/2023 Harvey Oshea MD LABORATORY Final Result * CTA CHEST+ABD+PEL (06/03/2023 2:01 PM CDT) Anatomical Region Laterality Modality Chest, Abdomen, Pelvis Computed Tomography 06/06/2023 3:54 AM CDT Impressions 06/06/2023 4:03 AM CDT IMPRESSION: Dilatation of the ascending thoracic aorta and aortic arch is somewhat larger than on the November 2021 study, maximum 6.2 cm. However the known thoracoabdominal dissection is stable. Postoperative changes noted in the ascending thoracic aorta. Dilated main pulmonary artery, 4.3 cm, possible pulmonary arterial hypertension. Cardiomegaly with dilatation of the left atrium. Renal cysts noted. No follow-up imaging is recommended per consensus recommendations based on imaging criteria. Referred By: ROSY ALVAREZ Interpreted By: Geoff Nolasco, 06/06/2023 3:54 AM Narrative 06/06/2023 4:03 AM CDT CTA of the chest, abdomen and pelvis with contrast INDICATION: Thoracoabdominal aortic dissection. Follow-up. Comparison is 12/09/2021. Radiation dose reduction technique(s) were used. TECHNIQUE: Precontrast and postcontrast images from the supraclavicular region through the pubic symphysis. MIP reconstructions were performed. FINDINGS: There is mild cardiomegaly with dilatation of the left atrium, stable. No pericardial effusion. Aortic measurements are as follows: Sinuses of Valsalva 5.1 cm compared to 5.0 cm previously. Proximal ascending thoracic aorta 6.2 cm compared to 5.8 cm previously. Mid ascending thoracic aorta, 4.7 cm, stable. Distal arch 5.3 cm compared to 4.8 cm previously. Postoperative changes noted in the ascending thoracic aorta. Aortic valve replacement. The known dissection begins in the distal descending thoracic aorta, unchanged, and terminates in the right common iliac artery, also unchanged. There is dilatation of the main pulmonary artery, 4.3 cm, suggesting pulmonary arterial hypertension. No mediastinal, hilar or axillary adenopathy. The lungs are clear. No infiltrates is seen. No bronchial occlusion or peribronchial thickening. No pleural fluid or pneumothorax. The gallbladder is unremarkable. The liver, spleen, pancreas and adrenals are unremarkable. Bilateral renal cysts noted. No hydronephrosis. Advanced arterial calcification is seen in the abdomen and pelvis. Scans of the pelvis show no mass, lymphadenopathy or free fluid. Previous repair of a left inguinal hernia is noted. The stomach and small bowel loops appear normal. No small bowel obstruction. The colon is unremarkable. Prior sternotomy noted. No acute bony abnormality. Procedure Note Geoff Nolasco MD - 06/06/2023 CTA of the chest, abdomen and pelvis with contrast INDICATION: Thoracoabdominal aortic dissection. Follow-up. Comparison is 12/09/2021. Radiation dose reduction technique(s) were used. TECHNIQUE: Precontrast and postcontrast images from the supraclavicularregion through the pubic symphysis. MIP reconstructions were performed. FINDINGS: There is mild cardiomegaly with dilatation of the left atrium,stable. No pericardial effusion. Aortic measurements are as follows: Sinuses of Valsalva 5.1 cm compared to 5.0 cm previously. Proximal ascending thoracic aorta 6.2 cm compared to 5.8 cm previously. Mid ascending thoracic aorta, 4.7 cm, stable. Distal arch 5.3 cm compared to 4.8 cm previously. Postoperative changes noted in the ascending thoracic aorta. Aortic valvereplacement. The known dissection begins in the distal descendingthoracic aorta, unchanged, and terminates in the right common iliacartery, also unchanged. There is dilatation of the main pulmonary artery, 4.3 cm, suggestingpulmonary arterial hypertension. No mediastinal, hilar or axillaryadenopathy. The lungs are clear. No infiltrates is seen. No bronchial occlusion orperibronchial thickening. No pleural fluid or pneumothorax. The gallbladder is unremarkable. The liver, spleen, pancreas and adrenalsare unremarkable. Bilateral renal cysts noted. No hydronephrosis.Advanced arterial calcification is seen in the abdomen and pelvis. Scans of the pelvis show no mass, lymphadenopathy or free fluid. Previousrepair of a left inguinal hernia is noted. The stomach and small bowel loops appear normal. No small bowelobstruction. The colon is unremarkable. Prior sternotomy noted. No acute bony abnormality. IMPRESSION: Dilatation of the ascending thoracic aorta and aortic arch issomewhat larger than on the November 2021 study, maximum 6.2 cm. Howeverthe known thoracoabdominal dissection is stable. Postoperative changesnoted in the ascending thoracic aorta. Dilated main pulmonary artery, 4.3 cm, possible pulmonary arterialhypertension. Cardiomegaly with dilatation of the left atrium. Renal cysts noted. No follow-up imaging is recommended per consensus recommendations based onimaging criteria. Referred By: ROSY ALVAREZ Interpreted By: Geoff Nolasco, 06/06/2023 3:54 AM Rosy Alvarez MAORI LIAISON ADVISER, PHYSICAL CHEMIST-C CT Final Result from Last 3 Months or Most Recently Relevant to Health Maintenance Insurance [facility] Advance Directives * Full Code (Latest Code Status on File) Date Activated Date Inactivated Comments 07/14/2020 10:57 AM 07/23/2020 5:11 PM * Full Code Date Activated Date Inactivated Comments 04/06/2018 12:41 PM 04/12/2018 6:26 PM Care Teams Clinical Manager Relationship Specialty Start Date End Date Harvey Oshea MD [address] [place] [address] PCP - General INTERNAL MEDICINE 01/05/18 Gerry Farnsworth MD [address] [address] Surgeon Surgical Critical Care 06/15/21 Brendon Dockery MD [address] [place] [phone] UROLOGY 12/01/21 Rosy Alvarez APRN, PHYSICAL CHEMIST-C [address] [facility] [address] [place] [address] NURSE PRACTITIONER 06/07/24
--- OUTSIDE RECORDS SUMMARY | 2025-01-29 11:24 | XMS_ITS | Encounter Summary ---
Author Organization [facility] Address [address] [place] [address] Care Team Providers Care Security Site Supervisor Name Role Phone Harvey Oshea MD Primary Care Provider Power Paulino MD Unavailable Gerry Farnsworth MD Unavailable Brendon Dockery MD Unavailable [phone] Keiko Camargo APRN, NP-C Unavailable Encounter Details Date Type Department Care Team (Late st Contact Info) Description 02/11/2018 Abstract [facility] [address] [place] [address] Power Paulino MD [address] [place] [address] Social History Tobacco Use Types Packs/Day Years Used Date Smoking Tobacco: Former Cigarettes 0.5 10 1 965 - 1975 Smokeless Tobacco: Never Alcohol Use Standard Drinks/Week Comments No 0 (1 standard drink = 0.6 oz pur e alcohol) Sex and Gender Information Value Date Recorded Sex Assigned at Not on file Legal Sex Male 7:17 PM CDT Gender Identity Male 12/01/2021 4:45 AM PRODUCT DESIGN ENGINEER Sexual Orientation Straight 12/01/2021 4: 45 AM PRODUCT DESIGN ENGINEER documented as of this encounter Plan of Treatment Not on file documented as of this encounter Visit Diagnoses Not on filedocumented in this encounter Care Teams Security Site Supervisor Relationship Specialty Start Date End Date Harvey Oshea MD [address] [place] [phone] PCP - General INTERNAL MEDICINE 01/05/18 Power Paulino MD [address] [place] [address] [place] Remote Inpatient Coder CARDIOVASCULAR DISEASE 01/05/18 06/06/24 Gerry Farnsworth MD [address] [place], [place] [address] Surgeon Surgical Critical Care 06/15/21 Brendon Dockery MD [address] [place] [address] [address] [place] [phone] UROLOGY 12/01/21 Keiko Camargo APRN, CLINICAL NURSE EDUCATOR-C [address] [facility] [address] [place] [address] NURSE PRACTITIONER 06/07/24 documented as of this encounter
--- OUTSIDE RECORDS SUMMARY | 2025-01-29 11:24 | XMS_ITS | Encounter Summary ---
Author Organization [facility] Address [address] [place] [address] Care Team Providers Care Clerical Adjudicator Name Role Phone Harvey Oshea MD Primary Care Provider [phone] Power Paulino MD Unavailable [phone] Gerry Farnsworth MD Unavailable Brendon Dockery MD Unavailable [phone] Keiko Camargo APRN PARTS TECHNICIAN-C Unavailable Encounter Details Date Type Department Care Team (Late st Contact Info) Description 03/24/2018 Prep for Procedure [facility] Surgical [address] [place] [address] Tha Miller MD [address] [place] [address] Social History Tobacco Use Types Packs/Day Years Used Date Smoking Tobacco: Former Cigarettes 0.5 10 1 646 - 0240 Smokeless Tobacco: Never Alcohol Use Standard Drinks/Week Comments No 0 (1 standard drink = 0.6 oz pur e alcohol) Sex and Gender Information Value Date Recorded Sex Assigned at Not on file Legal Sex Male 7:17 PM CDT Gender Identity Male 12/01/2021 4:45 AM CORONARY CLINICAL SPECIALIST Sexual Orientation Straight 12/01/2021 4: 45 AM CORONARY CLINICAL SPECIALIST documented as of this encounter Plan of Treatment Not on file documented as of this encounter Visit Diagnoses Not on filedocumented in this encounter Care Teams Clerical Adjudicator Relationship Specialty Start Date End Date Harvey Oshea MD [address] [place] [phone] PCP - General INTERNAL MEDICINE 01/05/18 Power Paulino MD [address] [place] [phone] [place] Oleo Hasher And Renderer CARDIOVASCULAR DISEASE 01/05/18 06/06/24 Gerry Farnsworth MD [address] [place] [address] Surgeon Surgical Critical Care 06/15/21 Brendon Dockery MD [address] [place] [address] 2 [place] [address] UROLOGY 12/01/21 Keiko Camargo, FRIED CAKE MAKER, PARTS TECHNICIAN-C [address] [facility] [address] [place] [address] NURSE PRACTITIONER 06/07/24 documented as of this encounter
--- OUTSIDE RECORDS SUMMARY | 2025-01-29 11:24 | XMS_ITS | Encounter Summary ---
Author Organization [facility] Address [address] [place] [address] Care Team Providers Care Rehabilitation Coordinator Name Role Phone Harvey Oshea MD Primary Care Provider Power Paulino MD Unavailable Gerry Farnsworth MD Unavailable Brendon Dockery MD Unavailable [phone] Keiko Camargo APRN CORPORATE TAX PREPARER-C Unavailable Encounter Details Date Type Department Care Team (Late st Contact Info) Description 01/14/2018 Abstract [facility] [address] [place] [address] Power Paulino MD [address] [place] [address] Social History Tobacco Use Types Packs/Day Years Used Date Smoking Tobacco: Former Smokeless Tobacco: Never Alcohol Use Standard Drinks/Week Comments No 0 (1 standard drink = 0.6 oz pur e alcohol) Sex and Gender Information Value Date Recorded Sex Assigned at Not on file Legal Sex Male 7:17 PM CDT Gender Identity Male 12/01/2021 4:45 AM VALVE STEAMER Sexual Orientation Straight 12/01/2021 4: 45 AM VALVE STEAMER documented as of this encounter Plan of Treatment Not on file documented as of this encounter Procedures Procedure Name Priority Date/Time Associated Diagnosis Comments D-DIMER, QUANTITATIVE Routine 01/07/2018 documented in this encounter Results * D-DIMER, QUANTITATIVE (01/07/2018) D-DIMER 0.20 01/07/2018 us [facility] Abstract LABORATORY Final Result documented in this encounter Visit Diagnoses Not on filedocumented in this encounter Care Teams Rehabilitation Coordinator Relationship Specialty Start Date End Date Harvey Oshea MD [address] [place] [phone] PCP - General INTERNAL MEDICINE 01/05/18 Power Paulino MD [address] [place] [phone] [place] Weather Stripper CARDIOVASCULAR DISEASE 01/05/18 06/06/24 Gerry Farnsworth MD [address] [place] [address] Surgeon Surgical Critical Care 06/15/21 Brendon Dockery MD [address] [place] [address] UROLOGY 12/01/21 Keiko Camargo APRN, CORPORATE TAX PREPARER-C [address] [facility] [address] [place] [address] NURSE PRACTITIONER 06/07/24 documented as of this encounter
--- OUTSIDE RECORDS SUMMARY | 2025-01-29 11:24 | XMS_ITS | Encounter Summary ---
Author Organization [facility] Address [address] [place] [address] Care Team Providers Care Roll Filler Name Role Phone Harvey Oshea MD Primary Care Provider Power Paulino MD Unavailable Gerry aFrnsworth MD Unavailable Brendon Dockery MD Unavailable [phone] Keiko Camargo APRN, NP-C Unavailable Encounter Details Date Type Department Care Team (Late st Contact Info) Description 02/14/2018 Abstract [facility] [address] [place] [address] Power Paulino MD [address] [place] [address] Social History Tobacco Use Types [...] CDT Gender Identity Male 12/01/2021 4:45 AM BLUEPRINT DUPLICATOR Sexual Orientation Straight 12/01/2021 4: 45 AM BLUEPRINT DUPLICATOR documented as of this encounter Plan of Treatment Not on file documented as of this encounter Procedures Procedure Name Priority Date/Time Associated Diagnosis Comments MAGNESIUM (OUTSIDE LAB) Routine 02/10/2018 CBC (OUTSIDE LAB) Routine 02/10/2018 PROTHROMBIN TIME, VENOUS Routine 02/10/2018 BASIC METABOLIC PANEL Routine 02/10/2018 documented in this encounter Results * MAGNESIUM (OUTSIDE LAB) (02/10/2018) MAGNESIUM 1.9 02/10/2018 [facility] Abstract LAB-OUTSIDE/ABSTRACTED Final Result * PROTIME/INR, VENOUS (02/10/2018) Pathologist [facility] PROTIME WHOLE BLOOD 13.1 INR WHOLE BLOOD 1.20 02/10/2018 us [facility] Abstract LABORATORY Final Result * CBC (OUTSIDE LAB) (02/10/2018) WBC 4.6 HGB 15.2 HCT 45.8 PLT 134 RBC 4.9 02/10/2018 us Doc [facility] Abstract LAB-OUTSIDE/ABSTRACTED Final Result * BASIC METABOLIC PANEL (02/10/2018) Pathologist [facility] SODIUM S/P/B 145 POTASSIUM S/P/B 3.5 CO2 29 CHLORIDE S/P/B 105 GLUCOSE 82 mg/dL CALCIUM S/P/B 9.4 BUN 26 CREATININE S/P/B 1.2 0.7 - 1.3 02/10/2018 us Doc [facility] Abstract LABORATORY Final Result documented in this encounter Visit Diagnoses Not on filedocumented in this encounter Care Teams Roll Filler Relationship Specialty Start Date End Date Harvey Oshea MD [address] [place] [address] PCP - General INTERNAL MEDICINE 01/05/18 Power Paulino MD [address] [place] [phone] [place] Fireproof Door Assembler CARDIOVASCULAR DISEASE 01/05/18 06/06/24 Gerry Farnsworth MD [address] [place] [address] Surgeon Surgical Critical Care 06/15/21 Brendon Dockery MD [address] [place] [address] 2 [place] [address] UROLOGY 12/01/21 Keiko Camargo APRN, FOREIGN FOOD COOK SPECIALTY-C [address] [facility] [address] [place] [phone] NURSE PRACTITIONER 06/07/24 documented as of this encounter
== END 2025-01-29 10:00 | disposition home or self-care (01) ==
LOC: CHSLAB 10:10
DX: I50.22 Chronic systolic (congestive) heart failure (principal)
CPT/HCPCS: 36415; 80053; 83880

== ENCOUNTER 2025-02-02 08:17 | Outpatient (CLI) | payer MEDICARE, SELFPAY ==
--- OUTSIDE RECORDS SUMMARY | 2025-02-02 08:27 | XMS_ITS | Encounter Summary ---
Author Organization [facility] Address [address] [place] [address] Care Team Providers Care Floor Sanding Machine Operator Name Role Phone Harvey Oshea MD Primary Care Provider Power Paulino MD Unavailable [phone] Gerry Farnsworth MD Unavailable Brendon Dockery MD Unavailable [phone] Keiko Camargo APRN FINANCIAL AID COORDINATOR-C Unavailable Encounter Details Date Type Department Care Team (Late st Contact Info) Description 03/24/2018 Prep for Procedure [facility] Surgical [address] [place] [address] Tha Miller MD [address] [place] [address] Social History Tobacco Use Types Packs/Day Years Used Date Smoking Tobacco: Former Cigarettes 0.5 10 1 736 - 6748 Smokeless Tobacco: Never Alcohol Use Standard Drinks/Week Comments No 0 (1 standard drink = 0.6 oz pur e alcohol) Sex and Gender Information Value Date Recorded Sex Assigned at Not on file Legal Sex Male 7:17 PM CDT Gender Identity Male 12/01/2021 4:45 AM PHARMACEUTICAL ASSISTANT Sexual Orientation Straight 12/01/2021 4: 45 AM PHARMACEUTICAL ASSISTANT documented as of this encounter Plan of Treatment Not on file documented as of this encounter Visit Diagnoses Not on filedocumented in this encounter Care Teams Floor Sanding Machine Operator Relationship Specialty Start Date End Date Harvey Oshea MD [address] [place] [phone] PCP - General INTERNAL MEDICINE 01/05/18 Power Paulino MD [address] [place] [phone] [place] Locomotive Inspector CARDIOVASCULAR DISEASE 01/05/18 06/06/24 Gerry Farnsworth MD [address] [place] [address] Surgeon Surgical Critical Care 06/15/21 Brendon Dockery MD [address] [place] [address] [address] [place] [address] UROLOGY 12/01/21 Keiko Camargo, FIELD CANE SCALER HELPER, FINANCIAL AID COORDINATOR-C [address] [facility] [address] [place] [address] NURSE PRACTITIONER 06/07/24 documented as of this encounter
--- OUTSIDE RECORDS SUMMARY | 2025-02-02 08:27 | XMS_ITS | Encounter Summary ---
Author Organization [facility] Address [address] [place] [address] Care Team Providers Care Screen Vent Binder Name Role Phone Harvey Oshea MD Primary Care Provider oPwer Paulino MD Unavailable Gerry Farnsworth MD Unavailable Brendon Dockery MD Unavailable [phone] Keiko Camargo APRN HUB LEAD-C Unavailable Encounter Details Date Type Department Care Team (Late st Contact Info) Description 01/14/2018 Abstract [facility] [address] [place] [address] Power Paulino MD [address] [place] [address] Social History Tobacco Use Types Packs/Day Years Used Date Smoking Tobacco: Former Smokeless Tobacco: Never Alcohol Use Standard Drinks/Week Comments No 0 (1 standard drink = 0.6 oz pur e alcohol) Sex and Gender Information Value Date Recorded Sex Assigned at Not on file Legal Sex Male 7:17 PM CDT Gender Identity Male 12/01/2021 4:45 AM LANGUAGE INTERPRETER Sexual Orientation Straight 12/01/2021 4: 45 AM LANGUAGE INTERPRETER documented as of this encounter Plan of Treatment Not on file documented as of this encounter Procedures Procedure Name Priority Date/Time Associated Diagnosis Comments D-DIMER, QUANTITATIVE Routine 01/07/2018 documented in this encounter Results * D-DIMER, QUANTITATIVE (01/07/2018) D-DIMER 0.20 01/07/2018 us Doc [facility] Final Result documented in this encounter Visit Diagnoses Not on filedocumented in this encounter Care Teams Screen Vent Binder Relationship Specialty Start Date End Date Harvey Oshea MD [address] [place] [phone] PCP - General INTERNAL MEDICINE 01/05/18 Power Paulino MD [address] [place] [phone] [place] Operator Prefinish CARDIOVASCULAR DISEASE 01/05/18 06/06/24 Gerry Farnsworth MD [address] [place] [address] Surgeon Surgical Critical Care 06/15/21 Brendon Dockery MD [address] [place] [address] UROLOGY 12/01/21 Keiko Camargo APRN, HUB LEAD-C [address] [facility] [address] [place] [address] NURSE PRACTITIONER 06/07/24 documented as of this encounter
--- OUTSIDE RECORDS SUMMARY | 2025-02-02 08:27 | XMS_ITS | Clinical Summary ---
Author Organization [facility] Address [address] [place] [address] Care Team Providers Care Hired Worker Name Role Phone Harvey Oshea MD Primary Care Provider [phone] Gerry Farnsworth MD Unavailable Brendon Dockery MD Unavailable [phone] Rosy Alvarez APRN, CLOTH CALENDER-C Unavailable Allergies No known active allergies Medications [...] aortic dissection repair 03/19/2022 Ascending aortic dissection ([facility]) Ascending aortic aneurysm 06/27/2020 S/P AVR (aortic valve replacement) 06/02/2018 PFO (patent foramen ovale) ([facility]) 06/02/2018 S/P mitral valve repair 06/02/2018 S/P tricuspid valve repair 06/02/2018 Aortic stenosis 04/06/2018 HTN (hypertension) 02/06/2018 S/P coronary artery stent placement 02/06/2018 Chronic systolic heart failure ([facility]) 01/11/2018 Hypercholesterolemia 01/11/2018 Aortic valve disease 01/11/2018 CAD (coronary artery disease) 10/25/2016 Overview (01/11/2018): s/p pci and stent of lad Atrial fibrillation ([facility]) Resolved Problems Problem Noted Date Diagnosed Date [...] CDT Gender Identity Male 12/01/2021 4:45 AM STRIPPER AND PRINTER Sexual Orientation Straight 12/01/2021 4: 45 AM STRIPPER AND PRINTER Last Filed Vital Signs Vital Sign Reading Time Taken Comments Blood Pressure 144/86 12/22/2023 8:26 AM STRIPPER AND PRINTER Pulse 67 12/22/2023 8:25 AM STRIPPER AND PRINTER Temperature 36.8 C (98.2 F) 07/23/2020 1:40 PM CDT Respiratory Rate 17 12/22/2023 8:25 AM STRIPPER AND PRINTER Oxygen Saturation 100% 12/22/2023 8:25 AM STRIPPER AND PRINTER Inhaled Oxygen Concentration - - Weight 103 kg (227 lb) 12/22/2023 8:25 AM STRIPPER AND PRINTER Height 182.9 cm (6') 12/22/2023 8:25 AM STRIPPER AND PRINTER Body Mass Index 30.79 12/22/2023 8:25 AM STRIPPER AND PRINTER Plan of Treatment Health Maintenance Due Date [...] this topic Medical Devices Implanted Type Area Bander And Cellophaner Machine Device Identifier Shelf Expiration Date Model / Serial / Lot Parikh Intuity Elite Aortic Valve Implanted:Qty: 1 on 04/06/2018 by Tha Miller MD at [facility] Valve Implant N/A: Heart 07/12/2021 / [id number] Atriclip-Flex Anitra Exclusion Atricure 45mm - [id number] Implanted:Qty: 1 on 04/06/2018 by Tha Miller MD at [facility] N/A: Heart ATRICURE 01/23/2021 ACH 145 / / [id number] Ring Lalita Parikh Physio Mitral 26mm - [id number] Implanted:Qty: 1 on 04/06/2018 by Tha Miller MD at [facility] N/A: Heart [employer] 03/24/2022 [id number] / / Ring Annuloplasty 28mm Tricuspid 1 Seam 2 Wrap Anatomic Parikh Mc3 Titanium Silicone Rubber Polyester Sterile - [id number] Implanted:Qty: 1 on 04/06/2018 by Tha Miller MD at [facility] N/A: Heart [employer] 10/03/2022 [id number] / / Graft Hemashield Woven Atrium 32mm X 30cm - [id number] Implanted:Qty: 1 on 07/14/2020 by Kourtney Bashir MD at [facility] N/A: Heart GETINGE [employer] 01/22/2025 [id number] / [id number] Description:Inventory notifi - rosa Procedures Procedure Name [...] Geoff Nolasco, 06/06/2023 3:54 AM Rosy Alvarez EDGE STRIPPER, CLOTH CALENDER-C CT Final Result from Last 3 Months or Most Recently Relevant to Health Maintenance Insurance [facility] [place] Directives * Full Code (Latest Code Status on File) Date Activated Date Inactivated Comments 07/14/2020 10:57 AM 07/23/2020 5:11 PM * Full Code Date Activated Date Inactivated Comments 04/06/2018 12:41 PM 04/12/2018 6:26 PM Care Teams Hired Worker Relationship Specialty Start Date End Date Harvey Oshea MD [address] [place] [address] PCP - General INTERNAL MEDICINE 01/05/18 Gerry Farnsworth MD [address] [address] Surgeon Surgical Critical Care 06/15/21 Brendon Dockery MD [address] [place] [phone] UROLOGY 12/01/21 Rosy Alvarez APRN, CLOTH CALENDER-C [address] [facility] [address] [place] [address] NURSE PRACTITIONER 06/07/24
--- OUTSIDE RECORDS SUMMARY | 2025-02-02 08:27 | XMS_ITS | Encounter Summary ---
Author Organization [facility] Address [address] [place] [address] Care Team Providers Care Lamp Cleaner Name Role Phone Harvey Oshea MD Primary Care Provider Power Paulino MD Unavailable Gerry Farnsworth MD Unavailable Brendon Dockery MD Unavailable [phone] Keiko Camargo APRN, NP-C Unavailable Encounter Details Date Type Department Care Team (Late st Contact Info) Description 02/11/2018 Abstract [facility] AT [facility] [address] [place] [address] Power Paulino MD [address] [place] [address] Social History Tobacco Use Types [...] CDT Gender Identity Male 12/01/2021 4:45 AM TEACHER OF THE SIGHT IMPAIRED Sexual Orientation Straight 12/01/2021 4: 45 AM TEACHER OF THE SIGHT IMPAIRED documented as of this encounter Plan of Treatment Not on file documented as of this encounter Visit Diagnoses Not on filedocumented in this encounter Care Teams Lamp Cleaner Relationship Specialty Start Date End Date Harvey Oshea MD [address] [place] [phone] PCP - General INTERNAL MEDICINE 01/05/18 Power Paulino MD [address] [place] [address] [place] Splicing Supervisor CARDIOVASCULAR DISEASE 01/05/18 06/06/24 Gerry Farnsworth MD [address] [place], [place] [address] Surgeon Surgical Critical Care 06/15/21 Brendon Dockery MD [address] [place] [address] [address] [place] [phone] UROLOGY 12/01/21 Keiko Camargo APRN, HONEYCOMB BLANKET MAKER-C [address] [facility] [address] [place] [address] NURSE PRACTITIONER 06/07/24 documented as of this encounter
--- OUTSIDE RECORDS SUMMARY | 2025-02-02 08:27 | XMS_ITS | Encounter Summary ---
Author Organization [facility] Address [address] [place] [address] Care Team Providers Care Dental Technician Metal Name Role Phone Harvey Oshea MD Primary Care Provider Power Paulino MD Unavailable [phone] Gerry Farnsworth MD Unavailable Brendon Dockery MD Unavailable [phone] Keiko Camargo APRN, NP-C Unavailable Encounter Details Date Type Department Care Team (Late st Contact Info) Description 02/14/2018 Abstract [facility] AT [facility] [address] [place] [address] Power Paulino MD [address] [place] [address] Social History Tobacco Use Types [...] CDT Gender Identity Male 12/01/2021 4:45 AM SPORTS PHYSIOTHERAPIST Sexual Orientation Straight 12/01/2021 4: 45 AM SPORTS PHYSIOTHERAPIST documented as of this encounter Plan of [...] Final Result * PROTIME/INR, VENOUS (02/10/2018) Pathologist [facility] PROTIME WHOLE BLOOD 13.1 INR WHOLE BLOOD 1.20 02/10/2018 us Doc [facility]AT[facility] Final Result * CBC (OUTSIDE LAB) (02/10/2018) WBC 4.6 HGB 15.2 HCT 45.8 PLT 134 RBC 4.9 02/10/2018 us Doc [facility] Abstract LAB-OUTSIDE/ABSTRACTED Final Result * BASIC METABOLIC PANEL (02/10/2018) Pathologist [facility] SODIUM S/P/B 145 POTASSIUM S/P/B 3.5 CO2 29 CHLORIDE S/P/B 105 GLUCOSE 82 mg/dL CALCIUM S/P/B 9.4 BUN 26 CREATININE S/P/B 1.2 0.7 - 1.3 02/10/2018 us Doc [facility] LABORATORY Final Result documented in this encounter Visit Diagnoses Not on filedocumented in this encounter Care Teams Dental Technician Metal Relationship Specialty Start Date End Date Harvey Oshea MD [address] [place] [address] PCP - General INTERNAL MEDICINE 01/05/18 Power Paulino MD [address] [place] [address] [place] Gear Changer CARDIOVASCULAR DISEASE 01/05/18 06/06/24 Gerry Farnsworth MD [address] [place] [address] Surgeon Surgical Critical Care 06/15/21 Brendon Dockery MD [address] [place] [address] 2 [place] [address] UROLOGY 12/01/21 Keiko Camargo APRN, MASH GRINDER-C [address] [facility] [address] [place] [phone] NURSE PRACTITIONER 06/07/24 documented as of this encounter
--- OUTSIDE RECORDS SUMMARY | 2025-02-02 08:27 | XMS_ITS | Encounter Summary ---
Author Organization [facility] Address [address] [place] [address] Care Team Providers Care Welding Machine Feeder Name Role Phone Harvey Oshea MD Primary Care Provider Power Paulino MD Unavailable [phone] Gerry Farnsworth MD Unavailable Brendon Dockery MD Unavailable [phone] Keiko Camargo APRN, NP-C Unavailable Encounter Details Date Type Department Care Team (Late st Contact Info) Description 12/29/2023 Abstract [facility] [address] [place] [address] Power Paulino MD [address] [place] [address] Social History Tobacco Use Types [...] CDT Gender Identity Male 12/01/2021 4:45 AM CIVIL ATTORNEY Sexual Orientation Straight 12/01/2021 4: 45 AM CIVIL ATTORNEY documented as of this encounter Functional Status [...] Result * BASIC METABOLIC PANEL (12/14/2023) Pathologist [facility] SODIUM S/P/B 140 135 - 146 POTASSIUM S/P/B 4.3 3.5 - 5.3 CO2 29 20 - 32 CHLORIDE S/P/B 104 98 - 110 GLUCOSE 88 65 - 99 mg/dL CALCIUM S/P/B 9.4 8.6 - 10.3 BUN 27 7 - 25 CREATININE S/P/B 1.14 0.7 - 1.28 12/14/2023 Result [facility] Harvey Oshea MD LABORATORY Final Result * CBC (OUTSIDE LAB) (11/10/2023) Pathologist [facility] WBC 5.3 3.8 - 10.8 HGB 12.1 [...] % 2.4 BASOPHILS % 0.8 11/10/2023 Result [facility] Harvey Oshea MD LAB-OUTSIDE/ABSTRACTED Final Result * TSH (OUTSIDE LAB) (11/10/2023) Pathologist [facility] TSH 1.03 0.40 - 4.50 FREE T4 1.4 0.8 - 1.8 TOTAL CK 42 44 - 196 11/10/2023 us Harvey Oshea MD LAB-OUTSIDE/ABSTRACTED Final Result * HEMOGLOBIN, GLYCOSYLATED (11/10/2023) HGB A1C 5.2 <5.7 % 11/10/2023 Result [facility] us Harvey Oshea MD LABORATORY Final Result [...] S/P/B 0.8 0.2 - 1.2 11/10/2023 Result Blanca Oshea MD LAB-OUTSIDE/ABSTRACTED Final Result * LIPID PANEL (11/10/2023) CHOLESTEROL 137 <200 HDL 57 >or=40 TRIGLYCERIDES 44 <150 NON HDL CHOLESTEROL 80 <130 CHOL/HDL RATIO 2.4 <5.0 LDL (CALCULATED) 67 11/10/2023 Result [facility] us Harvey Oshea MD LABORATORY Final Result documented in this encounter Visit Diagnoses Not on filedocumented in this encounter Care Teams Welding Machine Feeder Relationship Specialty Start Date End Date Harvey Oshea MD [address] [place] [address] PCP - General INTERNAL MEDICINE 01/05/18 Power Paulino MD [address] [place] [address] [place] Cable Engineer Outside Plant CARDIOVASCULAR DISEASE 01/05/18 06/06/24 Gerry Farnsworth MD [address] [place] [address] Surgeon Surgical Critical Care 06/15/21 Brendon Dockery MD [address] [place] [phone] UROLOGY 12/01/21 Keiko Camargo, HEAD GOLF COACH, CHAIR INSPECTOR-C [address] [facility] [address] [place] [address] NURSE PRACTITIONER 06/07/24 documented as of this encounter
[2025-02-02 08:29] LABS: Hemoglobin 15.9 g/dL (12.4-15.3); Mean Corpuscular HGB Conc 31.8 g/dL (32-36); Mean Corpuscular Hemoglobin 29.9 pg (27.0-31.0); Mean Corpuscular Volume 94.2 fL (78.0-102.0); Platelet Count Result 142 K/mm3 (150-420); Red Blood Count 5.31 M/mm3 (4.70-6.10); Red Cell Distribution Width 14.7 % (11.6-14.4); White Blood Count 5.4 K/mm3 (4.8-10.8)
[2025-02-02 08:38] LABS: Add Urine Microscopic? YES; Appearance Urine Clear (Clear); Bilirubin Urine Negative (Negative); Blood Urine 2+ (Negative); Color Urine Yellow (Yellow); Glucose Urine UA 3+ (Negative); Ketones Urine Negative (Negative); Leukocyte Esterase Ur Negative LEU/UL (Negative); Nitrate Urine Negative (Negative); Protein Urine 1+ (Negative)
[2025-02-02 08:49] LABS: Bacteria Urine Trace /hpf; Hemoglobin A1C 5.2 % (<5.7); Mucus Urine Present /lpf; Squamous Epithelial Cell Urine Rare /hpf (Few); WBC Urine None seen /hpf (0-3)
[2025-02-02 09:21] LABS: Alanine Aminotransferase 21 U/L (16-63); Albumin Level 3.9 g/dL (3.4-5.0); Alkaline Phosphatase 137 U/L (46-116); Anion Gap 3 mmol/L (4-12); Aspartate Amino Transferase 18 U/L (15-37); Bilirubin,Total 1.5 mg/dL (0.00-1.00); Blood Urea Nitrogen 34 mg/dL (7-18); Calcium 9.3 mg/dL (8.5-10.1); Carbon Dioxide 31 mmol/L (21-32); Chloride 105 mmol/L (98-108); Cholesterol 163 mg/dL (0-200); Creatine Kinase 85 U/L (39-308); Estimated Glomerular Filt Rate 39; Ferritin 95 ng/mL (26-388); Free T4 Free Thyroxine 1.07 ng/dL (0.76-1.46); Glucose 97 mg/dL (70-99); HDL Direct 75 mg/dL (40-60); Iron 111 ug/dL (65-175); LDL Cholesterol Calculated 81 mg/dL (<130); NT Pro B Type Natriuretic Pept 1525 pg/mL (0-450); Osmolality Calculated 295 mOsm/kg (285-295); Potassium 5.2 mmol/L (3.5-5.1); Sodium 139 mmol/L (136-145); Thyroid Stimulating Hormone 1.07 uIU/mL (0.36-3.74); Total Protein 7.3 g/dL (6.4-8.2); Triglycerides 35 mg/dL (0-150); Vitamin B12 380 pg/mL (193-986)
== END 2025-02-02 08:18 | disposition home or self-care (01) ==
PROVIDERS: PCP Internal Medicine; Visit Provider Internal Medicine
DX: E03.4 Atrophy of thyroid (acquired) (principal); E78.2 Mixed hyperlipidemia; I51.9 Heart disease, unspecified; R73.01 Impaired fasting glucose; N39.0 Urinary tract infection, site not specified; Z12.5 Encounter for screening for malignant neoplasm of prostate; D64.9 Anemia, unspecified; I50.22 Chronic systolic (congestive) heart failure
CPT/HCPCS: 36415; 80053; 80061; 81001; 82550; 82607; 82728; 83036; 83540; 83880; 84153; 84439; 84443; 84481; 85027; G0103

== ENCOUNTER 2025-02-16 09:22 | Outpatient (CLI) | payer MEDICARE, SELFPAY ==
--- OUTSIDE RECORDS SUMMARY | 2025-02-16 09:35 | XMS_ITS | Encounter Summary ---
Author Organization [facility] Address [address] [place] [address] Care Team Providers Care Cloth Mercerizing Supervisor Name Role Phone Harvey Oshea MD Primary Care Provider [phone] Power Paulino MD Unavailable Gerry Farnsworth MD Unavailable Brendon Dockery MD Unavailable [phone] Keiko Camargo APRN AIRCRAFT POWERPLANT REPAIRER-C Unavailable Encounter Details Date Type Department Care Team (Late st Contact Info) Description 01/14/2018 Abstract [facility] [address] [place] [address] Power Paulino MD [address] [place] [address] Social History Tobacco Use Types Packs/Day Years Used Date Smoking Tobacco: Former Smokeless Tobacco: Never Alcohol Use Standard Drinks/Week Comments No 0 (1 standard drink = 0.6 oz pur e alcohol) Sex and Gender Information Value Date Recorded Sex Assigned at Not on file Legal Sex Male 7:17 PM CDT Gender Identity Male 12/01/2021 4:45 AM RESEARCH ASSOCIATE Sexual Orientation Straight 12/01/2021 4: 45 AM RESEARCH ASSOCIATE documented as of this encounter Plan of Treatment Not on file documented as of this encounter Procedures Procedure Name Priority Date/Time Associated Diagnosis Comments D-DIMER, QUANTITATIVE Routine 01/07/2018 documented in this encounter Results * D-DIMER, QUANTITATIVE (01/07/2018) D-DIMER 0.20 01/07/2018 us Doc [facility] LAB[facility] Final Result documented in this encounter Visit Diagnoses Not on filedocumented in this encounter Care Teams Cloth Mercerizing Supervisor Relationship Specialty Start Date End Date Harvey Oshea MD [address] [place] [phone] PCP - General INTERNAL MEDICINE 01/05/18 Power Paulino MD [address] [place] [phone] [place] Change House Attendant CARDIOVASCULAR DISEASE 01/05/18 06/06/24 Gerry Farnsworth MD [address] [place] [address] Surgeon Surgical Critical Care 06/15/21 Brendon Dockery MD [address] [place] [address] UROLOGY 12/01/21 Keiko Camargo APRN, AIRCRAFT POWERPLANT REPAIRER-C [address] [facility] [address] [place] [address] NURSE PRACTITIONER 06/07/24 documented as of this encounter
--- OUTSIDE RECORDS SUMMARY | 2025-02-16 09:35 | XMS_ITS | Encounter Summary ---
Author Organization [facility] Address [address] [place] [address] Care Team Providers Care Filemaker Developer Name Role Phone Harvey Oshea MD Primary Care Provider [phone] Power Paulino MD Unavailable [phone] Gerry Farnsworth MD Unavailable Brendon Dockery MD Unavailable [phone] Keiko Camargo APRN MARKETING SYSTEMS MANAGER-C Unavailable Encounter Details Date Type Department Care Team (Late st Contact Info) Description 03/24/2018 Prep for Procedure [facility] Surgical [address] [place] [address] Tha Miller MD [address] [place] [address] Social History Tobacco Use Types Packs/Day Years Used Date Smoking Tobacco: Former Cigarettes 0.5 10 1 722 - 3795 Smokeless Tobacco: Never Alcohol Use Standard Drinks/Week Comments No 0 (1 standard drink = 0.6 oz pur e alcohol) Sex and Gender Information Value Date Recorded Sex Assigned at Not on file Legal Sex Male 7:17 PM CDT Gender Identity Male 12/01/2021 4:45 AM OUTREACH WORKER Sexual Orientation Straight 12/01/2021 4: 45 AM OUTREACH WORKER documented as of this encounter Plan of Treatment Not on file documented as of this encounter Visit Diagnoses Not on filedocumented in this encounter Care Teams Filemaker Developer Relationship Specialty Start Date End Date Harvey Oshea MD [address] [place] [phone] PCP - General INTERNAL MEDICINE 01/05/18 Power Paulino MD [address] [place] [address] [place] Soccer Ball Assembler CARDIOVASCULAR DISEASE 01/05/18 06/06/24 Gerry Farnsworth MD [address] [place] [address] Surgeon Surgical Critical Care 06/15/21 Brendon Dockery MD [address] [place] [address] [address] [place] [address] UROLOGY 12/01/21 Keiko Camargo, FOIL SPINNER, MARKETING SYSTEMS MANAGER-C [address] [facility] [address] [place] [address] NURSE PRACTITIONER 06/07/24 documented as of this encounter
--- OUTSIDE RECORDS SUMMARY | 2025-02-16 09:35 | XMS_ITS | Clinical Summary ---
Author Organization [facility] Address [address] [place] [address] Care Team Providers Care Education Administrator Name Role Phone Harvey Oshea MD Primary Care Provider [phone] Gerry Farnsworth MD Unavailable Brendon Dockery MD Unavailable [phone] Rosy Alvarez APRN, GLOBAL TRANSPORTATION MANAGER-C Unavailable Allergies No known active allergies Medications [...] aortic dissection repair 03/19/2022 Ascending aortic dissection ([facility]) Ascending aortic aneurysm 06/27/2020 S/P AVR (aortic valve replacement) 06/02/2018 PFO (patent foramen ovale) ([facility]) 06/02/2018 S/P mitral valve repair 06/02/2018 S/P tricuspid valve repair 06/02/2018 Aortic stenosis 04/06/2018 HTN (hypertension) 02/06/2018 S/P coronary artery stent placement 02/06/2018 Chronic systolic heart failure ([facility]) 01/11/2018 Hypercholesterolemia 01/11/2018 Aortic valve disease 01/11/2018 CAD (coronary artery disease) 10/25/2016 Overview (01/11/2018): s/p pci and stent of lad Atrial fibrillation ([facility]) Resolved Problems Problem Noted Date Diagnosed Date Resolved Date Fatigue 01/11/2018 01/11/2018 PASCALE treated with BiPAP 01/11/201801/11 Immunizations Immunization Administration Dates Next Due Fluzone 6 Months+ [...] CDT Gender Identity Male 12/01/2021 4:45 AM TRUST EVALUATION SUPERVISOR Sexual Orientation Straight 12/01/2021 4: 45 AM TRUST EVALUATION SUPERVISOR Last Filed Vital Signs Vital Sign Reading Time Taken Comments Blood Pressure 144/86 12/22/2023 8:26 AM TRUST EVALUATION SUPERVISOR Pulse 67 12/22/2023 8:25 AM TRUST EVALUATION SUPERVISOR Temperature 36.8 C (98.2 F) 07/23/2020 1:40 PM CDT Respiratory Rate 17 12/22/2023 8:25 AM TRUST EVALUATION SUPERVISOR Oxygen Saturation 100% 12/22/2023 8:25 AM TRUST EVALUATION SUPERVISOR Inhaled Oxygen Concentration - - Weight 103 kg (227 lb) 12/22/2023 8:25 AM TRUST EVALUATION SUPERVISOR Height 182.9 cm (6') 12/22/2023 8:25 AM TRUST EVALUATION SUPERVISOR Body Mass Index 30.79 12/22/2023 8:25 AM TRUST EVALUATION SUPERVISOR Plan of Treatment Health Maintenance Due Date Last Done Comments ASCVD Statin 1945 Hepatitis C 1965 DTaP, Tdap and Td Vaccines (1 - Tdap) 1966 Pneumococcal Vaccine: 50+ Years (1 of 2 - PCV) 1966 Zoster Vaccines (1 of 2) 1997 Annual Medicare Wellness Visit 2012 RSV Immunization or 60+ Years (1 - 1-dose 75+ series) 2022 COVID-19 Vaccine ( - season) 2024 ASCVD LDL 11/10/2024 11/10/2023, 10/25, [...] this topic Medical Devices Implanted Type Area Stud Driver Device Identifier Shelf Expiration Date Model / Serial / Lot Parikh Intuity Elite Aortic Valve Implanted:Qty: 1 on 04/06/2018 by [facility] at [facility] Valve Implant N/A: Heart 07/12/2021 / [id number] / [id number] Atriclip-Flex Anitra Exclusion Atricure 45mm - [id number] Implanted:Qty: 1 on 04/06/2018 by Tha Miller MD at [facility] N/A: Heart ATRICURE 01/23/2021 ACH 145 / / [id number] Ring Lalita Parikh Physio Mitral 26mm - [id number] Implanted:Qty: 1 on 04/06/2018 by Tha Miller MD at [facility] N/A: Heart [employer] 03/24/2022 [id number] / / Ring Annuloplasty 28mm Tricuspid 1 Seam 2 Wrap Anatomic Parikh Mc3 Titanium Silicone Rubber Polyester Sterile - [id number] Implanted:Qty: 1 on 04/06/2018 by Tha Miller MD at [facility] N/A: Heart [employer] 10/03/2022 [id number] / / Graft Hemashield Woven Atrium 32mm X 30cm - [id number] Implanted:Qty: 1 on 07/14/2020 by Kourtney Bashir MD at [facility] N/A: Heart GETINGE [employer] 01/22/2025 [id number] / [id number] Description:Inventory notifi - rosa Procedures Procedure Name [...] Interpreted By: Geoff Nolasco, 06/06/2023 3:54 AM Roys Alvarez SENIOR MARKETING COORDINATOR, GLOBAL TRANSPORTATION MANAGER-C CT Final Result from Last 3 Months or Most Recently Relevant to Health Maintenance Insurance [facility] [place] Directives * Full Code (Latest Code Status on File) Date Activated Date Inactivated Comments 07/14/2020 10:57 AM 07/23/2020 5:11 PM * Full Code Date Activated Date Inactivated Comments 04/06/2018 12:41 PM 04/12/2018 6:26 PM Care Teams Education Administrator Relationship Specialty Start Date End Date Harvey Oshea MD [address] [place] [address] PCP - General INTERNAL MEDICINE 01/05/18 Gerry Farnsworth MD [address] [address] Surgeon Surgical Critical Care 06/15/21 Brendon Dockery MD [address] [place] [phone] UROLOGY 12/01/21 Rosy Alvarez APRN, GLOBAL TRANSPORTATION MANAGER-C [address] [facility] [address] [place] [address] NURSE PRACTITIONER 06/07/24
--- OUTSIDE RECORDS SUMMARY | 2025-02-16 09:35 | XMS_ITS | Encounter Summary ---
Author Organization [facility] Address [address] [place] [address] Care Team Providers Care Residential Sales Manager Name Role Phone Harvey Oshea MD Primary Care Provider [phone] Power Paulino MD Unavailable [phone] Gerry Farnsworth MD Unavailable Brendon Dockery MD Unavailable [phone] Keiko Camargo APRN, NP-C Unavailable Encounter Details Date Type Department Care Team (Late st Contact Info) Description 12/29/2023 Abstract [facility] [address] [place] [address] Power Paulino MD [address] [place] [address] Social History Tobacco Use Types [...] CDT Gender Identity Male 12/01/2021 4:45 AM GENERAL CLEANER Sexual Orientation Straight 12/01/2021 4: 45 AM GENERAL CLEANER documented as of this encounter Functional Status [...] TYPE NATRIURETIC PEPTIDE 281 <100 12/14/2023 us Hravey Oshea MD LABORATORY Final Result * BASIC [...] S/P/B 1.14 0.7 - 1.28 12/14/2023 Result [facility] Harvey Oshea MD LABORATORY Final Result [...] % 2.4 BASOPHILS % 0.8 11/10/2023 Result [facility] Harvey Oshea MD LAB-OUTSIDE/ABSTRACTED Final Result * TSH (OUTSIDE LAB) (11/10/2023) Pathologist [facility] TSH 1.03 0.40 - 4.50 FREE T4 1.4 0.8 - 1.8 TOTAL CK 42 44 - 196 11/10/2023 us Harvey Oshea MD LAB-OUTSIDE/ABSTRACTED Final Result * HEMOGLOBIN, GLYCOSYLATED (11/10/2023) HGB A1C 5.2 <5.7 % 11/10/2023 Result [facility] us Harvey Oshea MD LABORATORY Final [...] 2.4 <5.0 LDL (CALCULATED) 67 11/10/2023 Result [facility] us Harvey Oshea MD LABORATORY Final Result documented in this encounter Visit Diagnoses Not on filedocumented in this encounter Care Teams Residential Sales Manager Relationship Specialty Start Date End Date Harvey Oshea MD [address] [place] [address] PCP - General INTERNAL MEDICINE 01/05/18 Power Paulino MD [address] [place] [address] [place] Hydraulic Press Operator CARDIOVASCULAR DISEASE 01/05/18 06/06/24 Gerry Farnsworth MD [address] [place] [address] Surgeon Surgical Critical Care 06/15/21 Brendon Dockery MD [address] [place] [phone] UROLOGY 12/01/21 Keiko Camargo, LENS DOTTER, OTR DRIVER-C [address] [facility] [address] [place] [address] NURSE PRACTITIONER 06/07/24 documented as of this encounter
--- OUTSIDE RECORDS SUMMARY | 2025-02-16 09:35 | XMS_ITS | Encounter Summary ---
Author Organization [facility] Address [address] [place] [address] Care Team Providers Care Crime Lab Analyst Name Role Phone Harvey Oshea MD Primary Care Provider Power Paulino MD Unavailable Gerry Farnsworth MD Unavailable Brendon Dockery MD Unavailable [phone] Keiko Camargo APRN, NP-C Unavailable [phone] Encounter Details Date Type Department Care Team (Late st Contact Info) Description 02/14/2018 Abstract [facility] [address] [place] [address] Power Paulino MD [address] [place] [address] Social History Tobacco Use Types [...] CDT Gender Identity Male 12/01/2021 4:45 AM EMAIL MARKETING MANAGER Sexual Orientation Straight 12/01/2021 4: 45 AM EMAIL MARKETING MANAGER documented as of this encounter Plan of [...] Final Result * PROTIME/INR, VENOUS (02/10/2018) Pathologist [facility] PROTIME WHOLE BLOOD 13.1 INR WHOLE BLOOD 1.20 02/10/2018 us [facility] Abstract LABORATORY Final Result * CBC (OUTSIDE LAB) (02/10/2018) WBC 4.6 HGB 15.2 HCT 45.8 PLT 134 RBC 4.9 02/10/2018 us [facility] Abstract LAB-OUTSIDE/ABSTRACTED Final Result * BASIC METABOLIC PANEL (02/10/2018) Pathologist [facility] SODIUM S/P/B 145 POTASSIUM S/P/B 3.5 CO2 29 CHLORIDE S/P/B 105 GLUCOSE 82 mg/dL CALCIUM S/P/B 9.4 BUN 26 CREATININE S/P/B 1.2 0.7 - 1.3 02/10/2018 us Doc [facility] Abstract LABORATORY Final Result documented in this encounter Visit Diagnoses Not on filedocumented in this encounter Care Teams Crime Lab Analyst Relationship Specialty Start Date End Date Harvey Oshea MD [address] [place] [address] PCP - General INTERNAL MEDICINE 01/05/18 Power Paulino MD [address] [place] [phone] [place] Merchandise Support Associate CARDIOVASCULAR DISEASE 01/05/18 06/06/24 Gerry Farnsworth MD [address] [place] [address] Surgeon Surgical Critical Care 06/15/21 Brendon Dockrey MD [address] [place] [address] [address] [place] [address] UROLOGY 12/01/21 Keiko Camargo APRN, BUTTON MACHINE OPERATOR-C [address] [facility] [address] [place] [phone] NURSE PRACTITIONER 06/07/24 documented as of this encounter
--- OUTSIDE RECORDS SUMMARY | 2025-02-16 09:35 | XMS_ITS | Encounter Summary ---
Author Organization [facility] Address [address] [place] [address] Care Team Providers Care Furniture Assembly Supervisor Name Role Phone Harvey Oshea MD Primary Care Provider Power Paulino MD Unavailable [phone] Gerry Farnsworth MD Unavailable Brendon Dockery MD Unavailable [phone] Keiko Camargo APRN, NP-C Unavailable Encounter Details Date Type Department Care Team (Late st Contact Info) Description 02/11/2018 Abstract [facility] [address] [place] [address] Power Paulino MD [address] [place] [address] Social History Tobacco Use Types [...] CDT Gender Identity Male 12/01/2021 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 Sexual Orientation Straight 12/01/2021 4: 45 AM BRIDGES SUPERVISOR documented as of this encounter Plan of Treatment Not on file documented as of this encounter Visit Diagnoses Not on filedocumented in this encounter Care Teams Furniture Assembly Supervisor Relationship Specialty Start Date End Date Harvey Oshea MD [address] [place] [phone] PCP - General INTERNAL MEDICINE 01/05/18 Power Paulino MD [address] [place] [address] [place] [employer]/Track And Field Coach CARDIOVASCULAR DISEASE 01/05/18 06/06/24 Gerry Farnsworth MD [address] [place], [place] [address] Surgeon Surgical Critical Care 06/15/21 Brendon Dockery MD [address] [place] [address] [address] [place] [phone] UROLOGY 12/01/21 Keiko Camargo APRN, MIXER AND SCALER-C [address] [facility] [address] [place] [address] NURSE PRACTITIONER 06/07/24 documented as of this encounter
[2025-02-16 14:22] LABS: Anion Gap 10 mmol/L (4-12); Blood Urea Nitrogen 33 mg/dL (7-18); Carbon Dioxide 26 mmol/L (21-32); Chloride 107 mmol/L (98-108); Estimated Glomerular Filt Rate 48; Glucose 76 mg/dL (70-99); NT Pro B Type Natriuretic Pept 3919 pg/mL (0-450); Osmolality Calculated 302 mOsm/kg (285-295); Sodium 143 mmol/L (136-145)
== END 2025-02-16 09:23 | disposition home or self-care (01) ==
LOC: CHSLAB 09:24
PROVIDERS: PCP Internal Medicine; Visit Provider Internal Medicine
DX: I50.1 Left ventricular failure, unspecified (principal); I10 Essential (primary) hypertension
CPT/HCPCS: 36415; 80048; 83880

== ENCOUNTER 2025-04-09 10:39 | Outpatient (CLI) | payer MEDICARE, SELFPAY ==
[2025-04-09 10:55] LABS: Basophils Absolute Auto 0.06 K/mm3 (0.00-0.10); Basophils Percent Auto 1.2 % (0.0-1.0); Eosinophils Absolute Auto 0.16 K/mm3 (0.02-0.50); Eosinophils Percent Auto 3.1 % (1.0-6.0); Hemoglobin 15.3 g/dL (12.4-15.3); Immature Granulocyte Absolute 0.01 K/mm3 (0.00-0.00); Immature Granulocyte Percent A 0.2 % (0.0-0.0); Lymphocytes Absolute Auto 1.15 K/mm3 (1.10-4.50); Lymphocytes Percent Auto 22.2 % (18.0-42.0); Mean Corpuscular HGB Conc 32.6 g/dL (32-36); Mean Corpuscular Hemoglobin 30.5 pg (27.0-31.0); Mean Corpuscular Volume 93.8 fL (78.0-102.0); Mean Platelet Volume 8.8 fl (8.7-11.0); Monocytes Absolute Auto 0.67 K/mm3 (0.10-0.90); Monocytes Percent Auto 12.9 % (2.0-11.0); Neutrophils Absolute Auto 3.13 K/mm3 (1.70-7.20); Neutrophils Percent Auto 60.4 % (50.0-70.0); Platelet Count Result 158 K/mm3 (150-420); Red Blood Count 5.01 M/mm3 (4.70-6.10); Red Cell Distribution Width 13.9 % (11.6-14.4); White Blood Count 5.2 K/mm3 (4.8-10.8)
[2025-04-09 11:35] LABS: Anion Gap 6 mmol/L (4-12); Blood Urea Nitrogen 22 mg/dL (9-20); Calcium 9.2 mg/dL (8.4-10.2); Carbon Dioxide 24 mmol/L (22-30); Chloride 107 mmol/L (98-107); Estimated Glomerular Filt Rate > 60; Glucose 83 mg/dL (65-110); Osmolality Calculated 286 mOsm/kg (285-295); Potassium 3.9 mmol/L (3.4-5.0); Sodium 137 mmol/L (137-145)
[2025-04-09 11:41] LABS: NT Pro B Type Natriuretic Pept 2380 pg/mL (19.9-100)
== END 2025-04-09 10:40 | disposition home or self-care (01) ==
LOC: CHSLAB 10:40
PROVIDERS: PCP Internal Medicine; Visit Provider Internal Medicine
DX: I50.1 Left ventricular failure, unspecified (principal)
CPT/HCPCS: 36415; 80048; 83880; 85025